=== PATIENT | female | born 1985 | race Caucasian/White ===

== ENCOUNTER 2017-02-01 21:38 | Emergency (ER) | payer OTHER ==
[~2017-02-01] VITALS: Ht 167.6 cm; Wt 62.0 kg
[2017-02-01 21:40] VITALS: BP 114/76; PULSE 112; RESP 16; TEMP 99.1; O2SAT 100
[2017-02-01] MEDS ORDERED: ZOFR4TAB3 SL ×2 (22:18)
[2017-02-01] MEDS ORDERED: HUMI40KI SQ ×2 (22:18)
[2017-02-01] MEDS ORDERED: HYDR2TAB PO ×2 (22:18)
[2017-02-01] MEDS ORDERED: MESA250 PO ×2 (22:18)
[2017-02-01] MEDS ORDERED: PROM25TA10 PO (22:18)
[2017-02-01] MEDS ORDERED: PRED5TAB PO (22:19)
[2017-02-01 22:37] VITALS: O2SAT 100
[2017-02-01] MEDS ORDERED: SODIUM CHLOR 0.9% 1000 ML INJ 1,000 ML IV SCH (22:38)
[2017-02-01] MEDS ORDERED: HYDROmorphone HCL PF 1 MG/ML VIAL IV PUSH ONE (22:45)
[2017-02-01] MEDS ORDERED: ONDANSETRON HCL 4 MG/2 ML VIAL IVP ONE (22:45)
--- NOTE | 2017-02-01 22:46 | PD ---
HPI Chief Complaint: GI Complaint Time Seen by Provider: 22:26 Travel History International Travel<30 days: No Contact w/Intl Traveler<30days: No Traveled to known affect area: No History of Present Illness HPI Patient comes in complaining of sharp stabbing abdominal pain ongoing for 4 days. Patient reports associated nausea, vomiting, diarrhea, and fevers. Patient states she has not been able to keep any of her medication down even with ODT Zofran. Patient states that she went to different ER this morning had lab work and CT done there and was told everything was fine given additional prescription for antinausea medication. Patient states she takes Dilaudid 4 mg by mouth for pain has been unable to keeping that down. Patient states she has a history of Crohn's that she has steroids at home for her when she has a flareup, Yodit keep them down either. Patient states this initially started off feeling like a Crohn's flare however is Progressively getting worse. Patient states she was in the hospital 3 weeks ago for an infection in her bowel movement was on Cipro and Flagyl. Patient states IV fluid and IV Zofran seemed to help some with her symptoms today. They'll pain is primarily periumbilical but radiates throughout the abdomen. PFSH Past Medical History Gastrointestinal Disorders: Yes (CHRONES) Immunizations Current: Yes ?: Not LMP: DECEMBER/DEPO : 1 Para: 1 Past Surgical History Abdominal Surgery: Yes (BOWEL RESECTION 08/18) Section: Yes Gynecologic Surgery: Yes () Social History Alcohol Use: No Tobacco Use: No Substance Use: No Allergies-Medications (Allergen,Severity, Reaction): Coded Allergies: No Known Allergies (Unverified , 02/01/17) Reported Meds & Prescriptions Reported Meds & Active Scripts Active Reported Prednisone 5 Mg Tab 5 Mg PO DAILY Pentasa (Mesalamine) 250 Mg Caper 1,000 Mg PO QID Humira 2-Pack Inj (Adalimumab 2-Pack Inj) 40 Mg/0.8 Ml Syr 40 Mg SQ Q14D Zofran Odt (Ondansetron Odt) 4 Mg Tab 4 Mg SL ONCE Phenergan (Promethazine HCl) 25 Mg Tablet 12.5 Mg PO ONCE Hydromorphone (Hydromorphone HCl) 2 Mg Tab 2 Mg PO Q6H PRN Review of Systems Except as stated in HPI: all other systems reviewed are Neg Physical Exam Narrative GENERAL: Well-developed, well nourished, appears uncomfortable, and non-ill appearing. SKIN: Focused skin assessment warm and dry. HEAD: Atraumatic. Normocephalic. EYES: Pupils equal and round. EOMI. No scleral icterus. No injection or drainage. ENT: No nasal bleeding or discharge. Mucous membranes pink and moist. NECK: Trachea midline. Supple. No nuclear rigidity. CARDIOVASCULAR: Regular rate and rhythm. No murmur appreciated. RESPIRATORY: No accessory muscle use. No respiratory distress. Clear to auscultation. Breath sounds equal bilaterally. GASTROINTESTINAL: Abdomen soft, nondistended, and no guarding. Hepatic and splenic margins not palpable. Normal bowel sounds 4. No pulsatile mass. Reports tenderness to palpation throughout abdomen. MUSCULOSKELETAL: No obvious deformities. No clubbing. No cyanosis. No edema. Full range of motion. NEUROLOGICAL: Awake and alert. No obvious cranial nerve deficits. Motor grossly within normal limits. Normal speech. PSYCHIATRIC: Appropriate mood and affect; insight and judgment normal. Data Data Last Documented VS Vital Signs Date Time Temp Pulse Resp B/P (MAP) Pulse Ox O2 Delivery O2 Flow Rate FiO2 02/01/17 22:37 100 Room Air 02/01/17 22:37 02/01/17 21:40 99.1 112 16 Orders Orders Complete Blood Count With Diff (02/01/17 22:19) Comprehensive Metabolic Panel (02/01/17 22:19) Urinalysis - C+S If Indicated (02/01/17 22:19) Ed Urine Pregnancytest Poc (02/01/17 22:19) Iv Access Insert/Monitor (02/01/17 22:19) Oxygen Administration (02/01/17 22:19) Oximetry (02/01/17 22:19) Lipase (02/01/17 22:19) Ondansetron Inj (Zofran Inj) (02/01/17 22:45) Sodium Chlor 0.9% 1000 Ml Inj (Ns 1000 M (02/01/17 22:38) Hydromorphone Pf Inj (Dilaudid Pf Inj) (02/01/17 22:45) [facility] Medical Decision Making Medical Screen Exam Complete: Yes Emergency Medical Condition: Yes Differential Diagnosis UTI, Crohn's flare, C. difficile, colitis, appendicitis, other Narrative Course Patient was seen and examined. Laboratory studies were ordered. Patient was given IV fluid, IV Zofran, and IV pain medication. Patient was signed out to Dr. Cherry at the end of my shift. Please see her documentation for final diagnosis and disposition. Deven Martínez Feb 01, 2017 22:45
[2017-02-01 22:48] LABS: AUTOMATED NEUTROPHIL # 7.2 TH/MM3 (1.8-7.7); BASOPHIL % 0.1 % (0.0-2.0); HEMATOCRIT 36.5 % (35.0-46.0); HEMO FLAGS DIFF FINAL; LYMPH % 28.5 % (9.0-44.0); LYMPHOCYTE # 3.2 TH/MM3 (1.0-4.8); MEAN CELL VOLUME 79.6 FL (80.0-100.0); MEAN CORPUSCULAR HGB CONC 32.6 % (32.0-36.0); MONO % 7.5 % (0.0-8.0); NEUT % 63.9 % (16.0-70.0); PLATELET COUNT 247 TH/MM3 (150-450); RED BLOOD COUNT 4.58 MIL/MM3 (4.00-5.30); RED CELL DISTRIBUTION WIDTH 14.7 % (11.6-17.2); WHITE BLOOD COUNT 11.2 TH/MM3 (4.0-11.0)
[2017-02-01 22:52] LABS: BACTERIA, URINE RARE /hpf; BLOOD, URINE NEG (NEG); COMMENT (UR) CULT NOT INDICATED; CULTURE IF INDICATED CULT NOT INDICATED; GLUCOSE,URINE NEG (NEG); KETONE, URINE NEG (NEG); MUCUS URINE MOD /lpf (OCC); NITRITE,URINE NEG (NEG); PH, URINE 6.5 (5.0-8.5); SQUAMOUS EPITHELIAL CELL URINE 5 /hpf (0-5); URINE COLOR YELLOW (YELLW/STRAW)
--- NOTE | 2017-02-01 22:55 | PD ---
Physical Exam Narrative General: The patient is a well-developed well-nourished female in no acute distress. Head and Neck exam: Head is normocephalic atraumatic. Eyes: EOMI, pupils are equal round and reactive to light. Nose: Midline septum with pink mucous membranes Mouth: Dentition unremarkable. Moist mucus membranes. Posterior oropharynx is not erythematous. No tonsillar hypertrophy. Uvula midline. Airway patent. Neck: No palpable lymphadenopathy. No nuchal rigidity. No thyromegaly. Cardiovascular: Regular rate and rhythm without murmurs, gallops, or rubs. Lungs: Clear to auscultation bilaterally. No wheezes, rhonchi, or rales. Abdomen: Soft, with reported tenderness on palpation of the left upper quadrant of the abdomen, no other tenderness on palpation of the other quadrants of the abdomen. No guarding, rebound, or rigidity. Normal bowel sounds are audible. No tenderness on palpation of McBurney's point. Extremities: No clubbing, cyanosis, or edema. 2+ pulses in all 4 extremities. No calf tenderness on palpation. Back: No costovertebral angle tenderness to palpation. Neurologic Exam: Grossly nonfocal. Skin Exam: No rash noted. Intact skin that is warm and dry. Data Data Last Documented VS Vital Signs Date Time Temp Pulse Resp B/P (MAP) Pulse Ox O2 Delivery O2 Flow Rate FiO2 02/01/17 22:37 100 Room Air 02/01/17 22:37 02/01/17 21:40 99.1 112 16 Orders Orders Complete Blood Count With Diff (02/01/17 22:19) Comprehensive Metabolic Panel (02/01/17 22:19) Urinalysis - C+S If Indicated (02/01/17 22:19) Ed Urine Pregnancytest Poc (02/01/17 22:19) Iv Access Insert/Monitor (02/01/17 22:19) Oxygen Administration (02/01/17 22:19) Oximetry (02/01/17 22:19) Lipase (02/01/17 22:19) Ondansetron Inj (Zofran Inj) (02/01/17 22:45) Sodium Chlor 0.9% 1000 Ml Inj (Ns 1000 M (02/01/17 22:38) Hydromorphone Pf Inj (Dilaudid Pf Inj) (02/01/17 22:45) Diphenhydramine (Benadryl) (02/01/17 23:15) Sodium Chlor 0.9% 1000 Ml Inj (Ns 1000 M (02/02/17 00:15) Metoclopramide Inj (Reglan Inj) (02/02/17 00:15) Diphenhydramine Inj (Benadryl Inj) (02/02/17 01:30) Hydromorphone Pf Inj (Dilaudid Pf Inj) (02/02/17 01:45) Labs Laboratory Tests Test 02/01/17 22:25 White Blood Count 11.2 TH/MM3 Red Blood Count 4.58 MIL/MM3 Hemoglobin 11.9 GM/DL Hematocrit 36.5 % Mean Corpuscular Volume 79.6 FL Mean Corpuscular Hemoglobin 26.0 PG Mean Corpuscular Hemoglobin Concent 32.6 % Red Cell Distribution Width 14.7 % Platelet Count 247 TH/MM3 Mean Platelet Volume 11.0 FL Neutrophils (%) (Auto) 63.9 % Lymphocytes (%) (Auto) 28.5 % Monocytes (%) (Auto) 7.5 % Eosinophils (%) (Auto) 0.0 % Basophils (%) (Auto) 0.1 % Neutrophils # (Auto) 7.2 TH/MM3 Lymphocytes # (Auto) 3.2 TH/MM3 Monocytes # (Auto) 0.8 TH/MM3 Eosinophils # (Auto) 0.0 TH/MM3 Basophils # (Auto) 0.0 TH/MM3 CBC Comment DIFF FINAL Differential Comment Urine Color YELLOW Urine Turbidity HAZY Urine pH 6.5 Urine Specific [place] 1.050 Urine Protein 30 mg/dL Urine Glucose (UA) NEG mg/dL Urine Ketones NEG mg/dL Urine Occult Blood NEG Urine Nitrite NEG Urine Bilirubin NEG Urine Urobilinogen 2.0 MG/DL Urine Leukocyte Esterase NEG Urine RBC 1 /hpf Urine WBC 2 /hpf Urine Squamous Epithelial Cells 5 /hpf Urine Bacteria RARE /hpf Urine Mucus MOD /lpf Microscopic Urinalysis Comment CULT NOT INDICATED Blood Urea Nitrogen 13 MG/DL Creatinine 0.73 MG/DL Random Glucose 89 MG/DL Total Protein 8.0 GM/DL Albumin 4.4 GM/DL Calcium Level 9.1 MG/DL Alkaline Phosphatase 62 U/L Aspartate Amino Transf (AST/SGOT) 6 U/L Alanine Aminotransferase (ALT/SGPT) 18 U/L Total Bilirubin 0.2 MG/DL Sodium Level 140 MEQ/L Potassium Level 3.9 MEQ/L Chloride Level 110 MEQ/L Carbon Dioxide Level 23.1 MEQ/L Anion Gap 7 MEQ/L Estimat Glomerular Filtration Rate 94 ML/MIN Lipase 99 U/L MDM Medical Record Reviewed: Yes Supervised Visit with SERGIO: No Narrative Course During the course of the patients emergency department visit, the patients history, examination, and differential diagnosis were reviewed with the patient. The patient had IV access obtained and blood work sent for analysis. The patient's case was checked out to me by Deven, the physician sugar laboratory assistant, at the conclusion of his shift. Please see his complete history and physical. Records from [facility] were obtained as the patient reports that she was there yesterday and had blood work done as well as a CT scan of the abdomen and pelvis. As the patient's abdominal examination was benign, and the patient has a history of recurrent CT scans of the abdomen and pelvis, we're trying to avoid further radiation unless the benefits outweigh the risk. The patient was initially provided normal saline 1 L IV fluid bolus, hydromorphone 0.5 mg IV, Zofran 4 mg IV. The patient had itching reported with the hydromorphone and was given Benadryl 25 mg by mouth 1. The patient reports an episode of vomiting of the pill. The patient was then given Benadryl 25 mg IV. For continued discomfort she was given hydromorphone 0.5 mg IV. The patient was given Reglan 5 mg IV for continued nausea. The patients laboratory studies were reviewed and remarkable for a white count of 11.2, hemoglobin 11.9, platelets 247 with a normal differential, CMP is remarkable for chloride of 110, AST 6, lipase 99, CMP is remarkable for an elevated specific gravity consistent with dehydration, 30 protein, rare bacteria , culture not indicated. Records from [facility] were obtained and the patient had a CT scan of the abdomen and pelvis on January 14 at their facility as well as on February 01 at that facility which revealed an unremarkable CT scan of the abdomen and pelvis. Given the fact that the patient's abdominal examination at this time is benign, the risks outweigh the benefits of additional imaging. The patient was instructed to hold her Phenergan orally and instead use Phenergan suppositories. She is instructed to follow-up with her pain management doctor, GI doctor, and primary care physician in the morning for reexamination for improvement. She is instructed to push fluids and get plenty of rest. She is instructed to continue her usual pain management regimen. The patient is resting comfortably and feels better, is alert and in no distress. The patients results and examination findings were discussed with the patient. The repeat examination is unremarkable and benign. The history, exam, diagnostic testing, and current condition do not suggest any significant pathology to warrant further testing, continued ED treatment, admission, or surgical evaluation at this point. The vital signs have been stable. The patient does not have uncontrollable pain, intractable vomiting, or other significant symptoms. The patient's condition is stable and appropriate for discharge. The patient will pursue further outpatient evaluation with a primary care physician or other designated or consulting physician as indicated in the discharge instructions. The patient expressed understanding and was agreeable with this plan. Diagnosis Primary Impression: Abdominal pain Qualified Codes: R10.12 - Left upper quadrant pain Referrals: Kizzy Jay MD call for appointment Primary Care Physician 2 days Patient Instructions: General Instructions Med/Other Pt SpecificInfo: Prescription(s) given Scripts Promethazine Supp (Phenergan Supp) 25 Mg Supp 25 MG RECTAL Q8HR Y for NAUSEA OR VOMITING, #7 SUPP 0 Refills Prov: Lesia Cherry MD 02/02/17 Disposition: 01 DISCHARGE HOME Condition: Stable Lesia Cherry MD Feb 01, 2017 22:55
[2017-02-01 23:04] LABS: ALT (GPT) 18 U/L (10-53); ANION GAP 7 MEQ/L (5-15); AST (GOT) 6 U/L (15-37); BICARBONATE 23.1 MEQ/L (21.0-32.0); BLOOD UREA NITROGEN 13 MG/DL (7-18); CHLORIDE 110 MEQ/L (98-107); GLOMERULAR FILTRATION RATE 94 ML/MIN (>89); POTASSIUM 3.9 MEQ/L (3.5-5.1); SODIUM (NA) 140 MEQ/L (136-145)
[2017-02-01 23:06] LABS: ALKALINE PHOSPHATASE 62 U/L (45-117); TOTAL BILIRUBIN ADULT 0.2 MG/DL (0.2-1.0)
[2017-02-01] MEDS ORDERED: diphenhydrAMINE HCL 25 MG CAP PO ONE (23:15)
[2017-02-02] MEDS ORDERED: SODIUM CHLOR 0.9% 1000 ML INJ 1,000 ML IV ONE (00:15)
[2017-02-02] MEDS ORDERED: METOCLOPRAMIDE HCL 10 MG/2 ML VIAL IV PUSH ONE (00:15)
[2017-02-02] MEDS ORDERED: diphenhydrAMINE HCL 50 MG/ML VIAL IV PUSH ONE (01:30)
[2017-02-02] MEDS ORDERED: HYDROmorphone HCL PF 1 MG/ML VIAL IV PUSH ONE (01:45)
[2017-02-02] MEDS ORDERED: PROM1SUP7 RECTAL (01:46)
[2017-02-02] MEDS ORDERED: ZOLO100T PO ×2 (23:28)
[2017-02-02] MEDS ORDERED: ALPR.5 PO ×2 (23:28)
== END 2017-02-02 02:22 | disposition home or self-care (01) ==
LOC: NEPE 21:38
DX: R10.12 Left upper quadrant pain (principal); K50.90 Crohn's disease, unspecified, without complications
CPT/HCPCS: 80053; 81001; 83690; 84703; 85025; 96361; 96374; 96375; 96376; 99284; J1170; J1200; J2405; J2765; J7030

== ENCOUNTER 2017-02-02 20:34 | Inpatient (IN) | payer OTHER ==
[~2017-02-02] VITALS: Ht 167.6 cm; Wt 65.0 kg
[~2017-02-02 20:34] MED LIST: HUMI40KI SQ; HYDR2TAB PO; MESA250 PO; PRED5TAB PO; PROM1SUP7 RECTAL; PROM25TA10 PO; ZOFR4TAB3 SL
[2017-02-02 20:36] VITALS: BP 150/97; PULSE 115; RESP 18; TEMP 98.3; O2SAT 96
[2017-02-02] MEDS ORDERED: ALPR.5 PO ×2 (23:28)
[2017-02-02] MEDS ORDERED: ZOLO100T PO ×2 (23:28)
[2017-02-02] MEDS ORDERED: ONDANSETRON HCL 4 MG/2 ML VIAL IVP ONE (23:30)
[2017-02-02] MEDS ORDERED: SODIUM CHLORIDE 0.9% FLUSH 10 ML FLUSH IV FLUSH PRN (23:30)
[2017-02-02] MEDS ORDERED: MORPHINE SULFATE 4 MG/ML INJ IV PUSH ONE (23:30)
[2017-02-02] MEDS ORDERED: diphenhydrAMINE HCL 25 MG CAP PO ONE (23:45)
[2017-02-03] VITALS (8 sets, daily range): BP systolic 110–128; BP diastolic 56–80; PULSE 70–87; RESP 18–19; TEMP 97.7–98.3; O2SAT 97–100
[2017-02-03 00:17] LABS: BACTERIA, URINE RARE /hpf; BLOOD, URINE NEG (NEG); COMMENT (UR) CULT NOT INDICATED; CULTURE IF INDICATED CULT NOT INDICATED; GLUCOSE,URINE NEG (NEG); HYALINE CAST, URINE 1 /lpf (RARE); KETONE, URINE NEG (NEG); MUCUS URINE FEW /lpf (OCC); NITRITE,URINE NEG (NEG); SQUAMOUS EPITHELIAL CELL URINE 2 /hpf (0-5); URINE COLOR LIGHT-YELLOW (YELLW/STRAW)
[2017-02-03 00:19] LABS: AUTOMATED NEUTROPHIL # 3.5 TH/MM3 (1.8-7.7); BASOPHIL % 0.3 % (0.0-2.0); EOSINOPHIL # 0.1 TH/MM3 (0-0.4); EOSINOPHIL % 1.3 % (0.0-4.0); HEMATOCRIT 34.1 % (35.0-46.0); HEMO FLAGS DIFF FINAL; LYMPH % 47.9 % (9.0-44.0); LYMPHOCYTE # 3.7 TH/MM3 (1.0-4.8); MEAN CORPUSCULAR HGB CONC 32.5 % (32.0-36.0); MONO % 5.3 % (0.0-8.0); NEUT % 45.2 % (16.0-70.0); PLATELET COUNT 200 TH/MM3 (150-450); RED BLOOD COUNT 4.26 MIL/MM3 (4.00-5.30); RED CELL DISTRIBUTION WIDTH 14.5 % (11.6-17.2); WHITE BLOOD COUNT 7.8 TH/MM3 (4.0-11.0)
[2017-02-03] MEDS: SODIUM CHLOR 0.9% 1000 ML INJ 1,000 ML IV SCH ×4 (00:21→14:33)
[2017-02-03 00:39] LABS: ALT (GPT) 15 U/L (10-53); ANION GAP 7 MEQ/L (5-15); AST (GOT) 4 U/L (15-37); BICARBONATE 25.1 MEQ/L (21.0-32.0); BLOOD UREA NITROGEN 11 MG/DL (7-18); CHLORIDE 109 MEQ/L (98-107); GLOMERULAR FILTRATION RATE 96 ML/MIN (>89); POTASSIUM 3.2 MEQ/L (3.5-5.1); SODIUM (NA) 141 MEQ/L (136-145)
[2017-02-03 00:41] LABS: ALKALINE PHOSPHATASE 56 U/L (45-117); TOTAL BILIRUBIN ADULT 0.2 MG/DL (0.2-1.0)
[2017-02-03] MEDS ORDERED: PROCHLORPERAZINE INJ 10 MG/2 ML VIAL IV PUSH ONE (01:00)
[2017-02-03] MEDS ORDERED: KETOROLAC TROMETHAMINE 30 MG/ML (IVP) VIAL IV PUSH ONE (01:00)
--- NOTE | 2017-02-03 01:35 | PD ---
HPI Chief Complaint: Abdominal Pain Time Seen by Provider: 23:15 Travel History International Travel<30 days: No Contact w/Intl Traveler<30days: No Traveled to known affect area: No History of Present Illness HPI Patient is a 31 year old female who comes in complaining of nausea, vomiting, and abdominal pain. She was here last night for the same thing. She says she is having a Crohn's flare. She reports having gone to [facility] twice, most recently two days ago. She had CT scans done at both visits that were within normal limits. She was given two doses of dilaudid yesterday as well as Zofran and Reglan and was discharged home. She says that she still is unable to keep anything down. She was given Phenergen suppositories, which she says she tried to use, but she has been having diarrhea. She says the pain feels like her typical Crohn's disease. PFSH Past Medical History Gastrointestinal Disorders: Yes (CHRONES) Immunizations Current: Yes ?: Unknown : 1 Para: 1 Past Surgical History Abdominal Surgery: Yes (BOWEL RESECTION 08/18) Section: Yes Gynecologic Surgery: Yes () Social History Alcohol Use: No Tobacco Use: No Substance Use: No Allergies-Medications (Allergen,Severity, Reaction): Coded Allergies: No Known Allergies (Unverified , 02/02/17) Reported Meds & Prescriptions Reported Meds & Active Scripts Active Phenergan Supp (Promethazine HCl) 25 Mg Supp 25 Mg RECTAL Q8HR PRN Reported Xanax (Alprazolam) 0.5 Mg Tab 0.5 Mg PO TID PRN Zoloft (Sertraline HCl) 100 Mg Tab 100 Mg PO DAILY Pentasa (Mesalamine) 250 Mg Caper 1,000 Mg PO QID Humira 2-Pack Inj (Adalimumab 2-Pack Inj) 40 Mg/0.8 Ml Syr 40 Mg SQ Q14D Zofran Odt (Ondansetron Odt) 4 Mg Tab 4 Mg SL ONCE Hydromorphone (Hydromorphone HCl) 2 Mg Tab 2 Mg PO Q6H PRN Review of Systems Except as stated in HPI: all other systems reviewed are Neg General / Constitutional: No: Fever, Chills HENT: No: Headaches, Lightheadedness Cardiovascular: No: Chest Pain or Discomfort Respiratory: No: Shortness of Breath Gastrointestinal: Positive: Nausea, Vomiting, Diarrhea, Abdominal Pain Genitourinary: No: Dysuria Musculoskeletal: No: Edema, Pain Skin: No Rash, No Change in Pigmentation Neurologic: No: Weakness, Dizziness Physical Exam Narrative GENERAL: Awake and alert, in no acute distress. SKIN: Focused skin assessment warm/dry. HEAD: Atraumatic. Normocephalic. EYES: Pupils equal and round. No scleral icterus. No injection or drainage. ENT: Mucous membranes pink and moist. NECK: Trachea midline. No JVD. CARDIOVASCULAR: Regular rate and rhythm. No murmur appreciated. RESPIRATORY: No accessory muscle use. Clear to auscultation. Breath sounds equal bilaterally. GASTROINTESTINAL: Abdomen soft, nondistended. Mild diffuse tenderness to palpation, no rebound or guarding. MUSCULOSKELETAL: No obvious deformities. No clubbing. No cyanosis. No edema. NEUROLOGICAL: Awake and alert. No obvious cranial nerve deficits. Motor grossly within normal limits. Normal speech. PSYCHIATRIC: Appropriate mood and affect; insight and judgment normal. Data Data Last Documented VS Vital Signs Date Time Temp Pulse Resp B/P (MAP) Pulse Ox O2 Delivery O2 Flow Rate FiO2 02/03/17 01:13 98.1 85 18 128/56 (80) 100 02/03/17 00:25 Room Air Orders Orders Complete Blood Count With Diff (02/02/17 23:26) Comprehensive Metabolic Panel (02/02/17 23:26) Lactic Acid (02/02/17 23:26) Urinalysis - C+S If Indicated (02/02/17 23:26) Iv Access Insert/Monitor (02/02/17 23:26) Ecg Monitoring (02/02/17 23:26) Oximetry (02/02/17 23:26) Morphine Inj (Morphine Inj) (02/02/17 23:30) Ondansetron Inj (Zofran Inj) (02/02/17 23:30) Sodium Chlor 0.9% 1000 Ml Inj (Ns 1000 M (02/02/17 23:26) Sodium Chloride 0.9% Flush (Ns Flush) (02/02/17 23:30) Ed Urine Pregnancytest Poc (02/02/17 23:26) Diphenhydramine (Benadryl) (02/02/17 23:45) Ketorolac Inj (Toradol Inj) (02/03/17 01:00) Prochlorperazine Inj (Compazine Inj) (02/03/17 01:00) Labs Laboratory Tests Test 02/02/17 23:37 02/02/17 23:57 White Blood Count 7.8 TH/MM3 Red Blood Count 4.26 MIL/MM3 Hemoglobin 11.1 GM/DL Hematocrit 34.1 % Mean Corpuscular Volume 80.0 FL Mean Corpuscular Hemoglobin 26.0 PG Mean Corpuscular Hemoglobin Concent 32.5 % Red Cell Distribution Width 14.5 % Platelet Count 200 TH/MM3 Mean Platelet Volume 10.4 FL Neutrophils (%) (Auto) 45.2 % Lymphocytes (%) (Auto) 47.9 % Monocytes (%) (Auto) 5.3 % Eosinophils (%) (Auto) 1.3 % Basophils (%) (Auto) 0.3 % Neutrophils # (Auto) 3.5 TH/MM3 Lymphocytes # (Auto) 3.7 TH/MM3 Monocytes # (Auto) 0.4 TH/MM3 Eosinophils # (Auto) 0.1 TH/MM3 Basophils # (Auto) 0.0 TH/MM3 CBC Comment DIFF FINAL Differential Comment Blood Urea Nitrogen 11 MG/DL Creatinine 0.72 MG/DL Random Glucose 75 MG/DL Total Protein 7.4 GM/DL Albumin 4.1 GM/DL Calcium Level 8.5 MG/DL Alkaline Phosphatase 56 U/L Aspartate Amino Transf (AST/SGOT) 4 U/L Alanine Aminotransferase (ALT/SGPT) 15 U/L Total Bilirubin 0.2 MG/DL Sodium Level 141 MEQ/L Potassium Level 3.2 MEQ/L Chloride Level 109 MEQ/L Carbon Dioxide Level 25.1 MEQ/L Anion Gap 7 MEQ/L Estimat Glomerular Filtration Rate 96 ML/MIN Urine Color LIGHT-YELLOW Urine Turbidity CLEAR Urine pH 6.0 Urine Specific [place] 1.016 Urine Protein NEG mg/dL Urine Glucose (UA) NEG mg/dL Urine Ketones NEG mg/dL Urine Occult Blood NEG Urine Nitrite NEG Urine Bilirubin NEG Urine Urobilinogen LESS THAN 2.0 MG/DL Urine Leukocyte Esterase SMALL Urine RBC 1 /hpf Urine WBC 5 /hpf Urine Squamous Epithelial Cells 2 /hpf Urine Bacteria RARE /hpf Urine Hyaline Casts 1 /lpf Urine Mucus FEW /lpf Microscopic Urinalysis Comment CULT NOT INDICATED Lactic Acid Level 0.9 mmol/L MDM Medical Decision Making Medical Screen Exam Complete: Yes Emergency Medical Condition: Yes Medical Record Reviewed: Yes Differential Diagnosis Crohn's flare, electrolyte abnormalities, gastroenteritis Narrative Course Patient is a 31-year-old female comes in complaining of abdominal pain with nausea and vomiting. Exam shows mild diffuse tenderness on palpation. Patient has had multiple CAT scans done in the past few weeks that have all been negative. IV established, labs sent. Labs show a potassium of 3.2, no other acute abnormalities. Given IV fluids, morphine, Zofran. She requested Benadryl makes her itch. She was given oral Benadryl. She continued to complain of nausea and abdominal pain. Given Toradol and Compazine. Patient will be admitted for intractable vomiting. Diagnosis Primary Impression: Nausea & vomiting Qualified Codes: R11.2 - Nausea with vomiting, unspecified Additional Impression: Abdominal pain Qualified Codes: R10.84 - Generalized abdominal pain Admitting Information Admitting Physician Requests: Admit Condition: Stable Daisy Hubbard MD Feb 03, 2017 01:35
[2017-02-03] MEDS ORDERED: MORPHINE SULFATE 4 MG/ML INJ IV PUSH ONE (01:45)
[2017-02-03] MEDS ORDERED: POTASSIUM CHLORIDE 10 MEQ CONTROLLED RELEASE TAB PO ONE (01:45)
[2017-02-03] MEDS ORDERED: NALOXONE HCL 0.4 MG/ML AMP IV PUSH PRN (02:15)
[2017-02-03] MEDS ORDERED: SODIUM CHLORIDE 0.9% FLUSH 10 ML FLUSH IV FLUSH PRN (02:15)
[2017-02-03] MEDS: HYDROmorphone HCL 2 MG TAB PO PRN (08:17)
[2017-02-03] MEDS: ONDANSETRON HCL 4 MG/2 ML VIAL IVP PRN (08:42)
[2017-02-03] MEDS: MESALAMINE 250 MG CAP PO SCH ×4 (09:08→20:45)
[2017-02-03] MEDS: SODIUM CHLORIDE 0.9% FLUSH 10 ML FLUSH IV FLUSH SCH ×2 (09:08→20:46)
[2017-02-03] MEDS: SERTRALINE HCL 100 MG TAB PO SCH (09:08)
--- NOTE | 2017-02-03 09:38 | HHI.HP ---
[facility]Staff Admission Diagnosis intractable vomiting Diagnoses: Chief Complaint: Abdominal pain Travel History International Travel<30 Days: No Contact w/Intl Traveler <30 Da: No Traveled to Known Affected Are: No History of Present Illness Written by Junior Wharton, acting as scribe for Dr. Smith on 02/03/17 at 09:37. 31-year-old female with past medical history of Crohn's disease, anxiety, and chronic abdominal pain who presented for worsening abdominal pain. The patient states that for the past 5 days since she has been having abdominal pain. She describes the pain as mid abdomen radiating to her back, constant, sharp. She actually finished a prednisone taper the day before; was told to stop by her mortgage closing clerk Dr. Frank. She's been to the ED multiple times with this and has had an unremarkable abdominal CT scans and discharged home. She states that on she had a fever of 102 and it was 101 on Thursday, although it has improved since then. She states she's been having associated nausea and vomiting, nonbloody for the last 5 days. For the past 5 days she's been having associated diarrhea about 20 times a day, reports occasionally bloody due to hemorrhoidal irritation. She isn't having associated headache for last 5 days described as a pressure. She states she's felt more weak and had a fall, denies any loss of consciousness. She denies any dysuria. She reports she has not been able to keep any of her oral medications down for Crohn's disease or pain. Review of Systems Except as stated in HPI: all other systems reviewed are Neg Past Family Social History Past Medical History Reported history of Crohn's disease Chronic pain Anxiety/depression Past Surgical History Bowel resection of the terminal ileum in August 2016 Appendectomy Reported Medications Reported Meds & Active Scripts Active Phenergan Supp (Promethazine HCl) 25 Mg Supp 25 Mg RECTAL Q8HR PRN Reported Xanax (Alprazolam) 0.5 Mg Tab 0.5 Mg PO TID PRN Zoloft (Sertraline HCl) 100 Mg Tab 100 Mg PO DAILY Pentasa (Mesalamine) 250 Mg Caper 1,000 Mg PO QID Humira 2-Pack Inj (Adalimumab 2-Pack Inj) 40 Mg/0.8 Ml Syr 40 Mg SQ Q14D Zofran Odt (Ondansetron Odt) 4 Mg Tab 4 Mg SL ONCE Hydromorphone (Hydromorphone HCl) 2 Mg Tab 2 Mg PO Q6H PRN Allergies: Coded Allergies: No Known Allergies (Unverified , 02/02/17) Active Ordered Medications Current Medications Medications (Trade) Dose Ordered Sig/Ayan Route Start Time Stop Time Status Last Admin Sodium Chloride 1,000 ml @ 100 mls/hr Q10H IV 02/03/17 02:05 02/03/17 04:18 (NS Flush) 2 ml UNSCH PRN IV FLUSH 02/03/17 02:15 (NS Flush) 2 ml BID IV FLUSH 02/03/17 09:00 02/03/17 09:08 (Zofran Inj) 4 mg Q6H PRN IVP 02/03/17 02:15 02/03/17 08:42 (Narcan Inj) 0.4 mg UNSCH PRN IV PUSH 02/03/17 02:15 (Pentasa Sr) 1,000 mg QID PO 02/03/17 09:00 02/03/17 09:08 (Zoloft) 100 mg DAILY PO 02/03/17 09:00 02/03/17 09:08 (Xanax) 0.5 mg TID PRN PO 02/03/17 07:45 (Dilaudid) 2 mg Q6H PRN PO 02/03/17 07:45 02/03/17 08:17 (Dilaudid Pf Inj) 1 mg Q6H PRN IV PUSH 02/03/17 10:30 UNV (Benadryl) 25 mg Q6H PRN PO 02/03/17 10:30 UNV Family History Father was an alcoholic and of suicide and had GI ulcers Social History Denies any alcohol, tobacco, or drug use Physical Exam Vital Signs Vital Signs Date Time Temp Pulse Resp B/P (MAP) Pulse Ox O2 Delivery O2 Flow Rate FiO2 02/03/17 08:00 97.7 82 18 110/75 (87) 99 02/03/17 04:20 74 02/03/17 03:26 97.7 70 18 111/76 (88) 99 02/03/17 01:13 98.1 85 18 128/56 (80) 100 02/03/17 00:25 98 Room Air 02/02/17 23:08 18 02/02/17 20:36 98.3 115 18 150/97 (114) 96 Room Air Physical Exam GENERAL: Well-developed well-nourished. In no acute distress. SKIN: Warm and dry. Well-healed midline abdominal surgical scar. HEENT: Normocephalic. Pupils equal and round. Mucous membranes pink and moist. CARDIOVASCULAR: Regular rate and rhythm. No murmur appreciated. RESPIRATORY: No accessory muscle use. Clear to auscultation. Breath sounds equal bilaterally. GASTROINTESTINAL: Abdomen soft, nondistended. Bowel sounds x4. Generalized TTP , worse on the right. MUSCULOSKELETAL: No obvious deformities. No clubbing or cyanosis. No edema. NEUROLOGICAL: Awake and alert. No focal neurological deficits. Moves upper and lower extremities spontaneously. Normal speech. PSYCHIATRIC: Appropriate mood and affect; insight and judgment normal. Laboratory Laboratory Tests Test 02/02/17 23:37 02/02/17 23:57 White Blood Count 7.8 Red Blood Count 4.26 Hemoglobin 11.1 Hematocrit 34.1 Mean Corpuscular Volume 80.0 Mean Corpuscular Hemoglobin 26.0 Mean Corpuscular Hemoglobin Concent 32.5 Red Cell Distribution Width 14.5 Platelet Count 200 Mean Platelet Volume 10.4 Neutrophils (%) (Auto) 45.2 Lymphocytes (%) (Auto) 47.9 Monocytes (%) (Auto) 5.3 Eosinophils (%) (Auto) 1.3 Basophils (%) (Auto) 0.3 Neutrophils # (Auto) 3.5 Lymphocytes # (Auto) 3.7 Monocytes # (Auto) 0.4 Eosinophils # (Auto) 0.1 Basophils # (Auto) 0.0 CBC Comment DIFF FINAL Differential Comment Blood Urea Nitrogen 11 Creatinine 0.72 Random Glucose 75 Total Protein 7.4 Albumin 4.1 Calcium Level 8.5 Alkaline Phosphatase 56 Aspartate Amino Transf (AST/SGOT) 4 Alanine Aminotransferase (ALT/SGPT) 15 Total Bilirubin 0.2 Sodium Level 141 Potassium Level 3.2 Chloride Level 109 Carbon Dioxide Level 25.1 Anion Gap 7 Estimat Glomerular Filtration Rate 96 Urine Color LIGHT-YELLOW Urine Turbidity CLEAR Urine pH 6.0 Urine Specific [place] 1.016 Urine Protein NEG Urine Glucose (UA) NEG Urine Ketones NEG Urine Occult Blood NEG Urine Nitrite NEG Urine Bilirubin NEG Urine Urobilinogen LESS THAN 2.0 Urine Leukocyte Esterase SMALL Urine RBC 1 Urine WBC 5 Urine Squamous Epithelial Cells 2 Urine Bacteria RARE Urine Hyaline Casts 1 Urine Mucus FEW Microscopic Urinalysis Comment CULT NOT INDICATED Lactic Acid Level 0.9 Urine Opiates Screen NEG Urine Barbiturates Screen NEG Urine Amphetamines Screen NEG Urine Benzodiazepines Screen POS Urine Cocaine Screen NEG Urine Cannabinoids Screen NEG Result Diagram: 02/02/17233602/02/172336 Caprini VTE Risk Assessment Caprini VTE Risk Assessment: No/Low Risk (score <= 1) Caprini Risk Assessment Model Point Value = 1 Point Value = 2 Point Value = 3 Point Value = 5 Age 41-60 Minor surgery BMI > 25 kg/m2 Swollen legs Varicose veins or History of unexplained or recurrent spontaneous Oral contraceptives or hormone replacement Sepsis (< 1 month) Serious lung disease, including pneumonia (< 1 month) Abnormal pulmonary function Acute myocardial infarction Congestive heart failure (< 1 month) History of inflammatory bowel disease Medical patient at bed rest Age 61-74 Arthroscopic surgery Major open surgery (> 45 min) Laparoscopic surgery (> 45 min) Malignancy Confined to bed (> 72 hours) Immobilizing plaster cast Central venous access Age >= 75 History of VTE Family history of VTE Factor V Leiden Prothrombin [id number] Lupus anticoagulant Anticardiolipin antibodies Elevated serum homocysteine Heparin-induced thrombocytopenia Other congenital or acquired thrombophilia Stroke (< 1 month) Elective arthroplasty Hip, pelvis, or leg fracture Acute spinal cord injury (< 1 month) Prophylaxis Regimen Total Risk Factor Score Risk Level Prophylaxis Regimen 0-1 Low Early ambulation 2 Moderate Order ONE of the following: *Sequential Compression Device (SCD) *Heparin 5000 units SQ BID 3-4 Higher Order ONE of the following medications: *Heparin 5000 units SQ TID *Enoxaparin/Lovenox 40 mg SQ daily (WT < 150 kg, CrCl > 30 mL/min) *Enoxaparin/Lovenox 30 mg SQ daily (WT < 150 kg, CrCl > 10-29 mL/min) *Enoxaparin/Lovenox 30 mg SQ BID (WT < 150 kg, CrCl > 30 mL/min) AND/OR *Sequential Compression Device (SCD) 5 or more Highest Order ONE of the following medications: *Heparin 5000 units SQ TID (Preferred with Epidurals) *Enoxaparin/Lovenox 40 mg SQ daily (WT < 150 kg, CrCl > 30 mL/min) *Enoxaparin/Lovenox 30 mg SQ daily (WT < 150 kg, CrCl > 10-29 mL/min) *Enoxaparin/Lovenox 30 mg SQ BID (WT < 150 kg, CrCl > 30 mL/min) AND *Sequential Compression Device (SCD) Assessment and Plan Assessment and Plan 31-year-old female with past medical history of Crohn's disease, anxiety/ depression, and chronic abdominal pain who presented for worsening abdominal pain Abdominal pain, nausea, vomiting, diarrhea: Possible Crohn's flare. -Obtain records from patient's mortgage closing clerk -Consult gastroenterology -IV steroids -Pain control as below -Continue home mesalamine -IVF -Zofran as needed Chronic pain: Confirmed patient's home dose of Dilaudid 2 mg every 6 hours as needed. -Continue home Dilaudid oral and will provide IV Dilaudid as needed if not tolerating oral intake as above Anxiety/depression: Chronic. -Continue Zoloft and Xanax as needed DVT prophylaxis: SCDs Discussed Condition With Patient Attending Statement This note was transcribed by arian [Junior Wharton]. I, Dr. Josué Smith personally performed the history, physical exam, and medical decision making; and confirmed the accuracy of the information in the transcribed note. Authenticated by Dr. Josué Smith on 02/03/17 at 23:11. Junior Wharton Feb 03, 2017 09:38 Josué Smith MD Feb 03, 2017 23:11
[2017-02-03] MEDS: diphenhydrAMINE HCL 25 MG CAP PO PRN (11:22)
[2017-02-03] MEDS: HYDROmorphone HCL PF 1 MG/ML VIAL IV PUSH PRN ×2 (11:23→18:27)
[2017-02-03] MEDS: methylPREDNISolone SOD SUCC 40 MG/1 ML VIAL IV PUSH SCH ×2 (13:23→20:45)
--- NOTE | 2017-02-03 15:12 | PD.CONS ---
HPI History of Present Illness This is a 31 year old female who presented to the emergency room for evaluation of nausea, vomiting, diarrhea with abdominal pain and inability to tolerate po x 5 days. She reports that she was diagnosed with Crohn's disease 8 years. She is on Humira (took a week ago Thursday), pentasa 250mg iiii po QID, zofran prn , phenergan prn, dilaudid 2mg po QID. She goes to pain management for her dilaudid/Ramírez infusions for abdominal and back pain. Her locker plant attendant is Dr. Frank in [place]. She hospitalized 3 weeks ago at [facility] and she was sent home with tapering steroids. She then followed up with her locker plant attendant Dr. Frank on Thursday and he discontinued the steroids and wanted to set her up for a colonoscopy. She last had a colonoscopy in August of [address] 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 She complains of RLQ pain that radiates to her back. It is a sharp intermittent pain that radiates to her back- where she has a constant dull ache. She reports that she is unable to tolerate any po x 4-5 days and vomits undigested food or bile if she tries. She reports that she has been having 20 loose stools per day, sometimes mixed with a small amount of bright red blood. However, this is more controlled since she has been in the hospital and she has only had 4 today. She has lost 5 lbs in the past couple of days. She states that she recently relocated from [place] and is still following with her GI physician in [place]. She is requesting IV pain medicine for her abdominal and back pain. Obtained records from [facility]. She has had multiple ER visits for abdominal pain. She was seen on 01/14/17 and was discharged home. She returned on 01/15 and was admitted overnight and evaluated by Dr. Ronda Davis for abdominal pain, possibly related to Crohns exacerbation and she was given a steroid taper. She was then seen in the ER on 01/31 and discharged home with Lortab. She was also seen in the ER on 02/01. At that time, she was evaluated with CT scan abdomen and pelvis with IV contrast (02/01/17)---> unremarkable CT scan of the abdomen and pelvis. She was discharged home and instructed to follow up with her GI physician and if she could not be seen by him, by Dr. Wise. (Alma Marino) [facility] Past Medical History Reported history of Crohn's disease Fibromyalgia Chronic pain Anxiety/depression Past Surgical History Bowel resection of the terminal ileum, descending colon in August 2016 Appendectomy Colonoscopy (Alma Marino) Coded Allergies: No Known Allergies (Unverified , 02/02/17) Medications Allergies Coded Allergies Type Severity Reaction Last Updated Verified No Known Allergies 02/02/17 No Active Scripts Medications Dose Route/Sig Max Daily Dose Days Date Category Xanax (Alprazolam) 0.5 Mg Tab 0.5 Mg PO TID PRN 02/02/17 Reported Zoloft (Sertraline HCl) 100 Mg Tab 100 Mg PO DAILY 02/02/17 Reported Phenergan Supp (Promethazine HCl) 25 Mg Supp 25 Mg RECTAL Q8HR PRN 02/02/17 Rx Pentasa (Mesalamine) 250 Mg Caper 1,000 Mg PO QID 02/01/17 Reported Humira 2-Pack Inj (Adalimumab 2-Pack Inj) 40 Mg/0.8 Ml Syr 40 Mg SQ Q14D 02/01/17 Reported Zofran Odt (Ondansetron Odt) 4 Mg Tab 4 Mg SL ONCE 02/01/17 Reported Hydromorphone (Hydromorphone HCl) 2 Mg Tab 2 Mg PO Q6H PRN 02/01/17 Reported Family History Father was an alcoholic and of suicide and had GI ulcers Social History Denies any alcohol, tobacco, or drug use (Alma Marino) Review of Systems Constitutional: COMPLAINS OF: Fatigue, Weight loss, Change in appetite, DENIES : Fever, Chills Respiratory: DENIES: Cough, Shortness of breath Cardiovascular: DENIES: Chest pain Gastrointestinal: COMPLAINS OF: Abdominal pain, Diarrhea, Nausea, Vomiting, DENIES: Black stools, Bloody stools, Constipation, Swelling of Abdomen, Heartburn Musculoskeletal: COMPLAINS OF: Back pain Hematologic/lymphatic: DENIES: Bruising Neurologic: DENIES: Headache Psychiatric: DENIES: Confusion (Alma Marino CURRICULUM SPECIALIST) GI Exam Vitals I&O Vital Signs Date Time Temp Pulse Resp B/P (MAP) Pulse Ox O2 Delivery O2 Flow Rate FiO2 02/03/17 11:27 97.9 87 18 115/80 (92) 100 02/03/17 08:00 97.7 82 18 110/75 (87) 99 02/03/17 04:20 74 02/03/17 03:26 97.7 70 18 111/76 (88) 99 02/03/17 01:13 98.1 85 18 128/56 (80) 100 02/03/17 00:25 98 Room Air 02/02/17 23:08 18 02/02/17 20:36 98.3 115 18 150/97 (114) 96 Room Air I/O 02/02/17 02/02/17 02/02/17 02/03/17 02/03/17 02/03/17 07:00 15:00 23:00 07:00 15:00 23:00 Intake Total 1000 ml 1000 ml Balance 1000 ml 1000 ml Intake IV Total 1000 ml 1000 ml Laboratory Test 02/02/17 23:37 02/02/17 23:57 White Blood Count 7.8 TH/MM3 Red Blood Count 4.26 MIL/MM3 Hemoglobin 11.1 GM/DL Hematocrit 34.1 % Mean Corpuscular Volume 80.0 FL Mean Corpuscular Hemoglobin 26.0 PG Mean Corpuscular Hemoglobin Concent 32.5 % Red Cell Distribution Width 14.5 % Platelet Count 200 TH/MM3 Mean Platelet Volume 10.4 FL Neutrophils (%) (Auto) 45.2 % Lymphocytes (%) (Auto) 47.9 % Monocytes (%) (Auto) 5.3 % Eosinophils (%) (Auto) 1.3 % Basophils (%) (Auto) 0.3 % Neutrophils # (Auto) 3.5 TH/MM3 Lymphocytes # (Auto) 3.7 TH/MM3 Monocytes # (Auto) 0.4 TH/MM3 Eosinophils # (Auto) 0.1 TH/MM3 Basophils # (Auto) 0.0 TH/MM3 CBC Comment DIFF FINAL Differential Comment Blood Urea Nitrogen 11 MG/DL Creatinine 0.72 MG/DL Random Glucose 75 MG/DL Total Protein 7.4 GM/DL Albumin 4.1 GM/DL Calcium Level 8.5 MG/DL Alkaline Phosphatase 56 U/L Aspartate Amino Transf (AST/SGOT) 4 U/L Alanine Aminotransferase (ALT/SGPT) 15 U/L Total Bilirubin 0.2 MG/DL Sodium Level 141 MEQ/L Potassium Level 3.2 MEQ/L Chloride Level 109 MEQ/L Carbon Dioxide Level 25.1 MEQ/L Anion Gap 7 MEQ/L Estimat Glomerular Filtration Rate 96 ML/MIN Urine Color LIGHT-YELLOW Urine Turbidity CLEAR Urine pH 6.0 Urine Specific [place] 1.016 Urine Protein NEG mg/dL Urine Glucose (UA) NEG mg/dL Urine Ketones NEG mg/dL Urine Occult Blood NEG Urine Nitrite NEG Urine Bilirubin NEG Urine Urobilinogen LESS THAN 2.0 MG/DL Urine Leukocyte Esterase SMALL Urine RBC 1 /hpf Urine WBC 5 /hpf Urine Squamous Epithelial Cells 2 /hpf Urine Bacteria RARE /hpf Urine Hyaline Casts 1 /lpf Urine Mucus FEW /lpf Microscopic Urinalysis Comment CULT NOT INDICATED Lactic Acid Level 0.9 mmol/L Urine Opiates Screen NEG Urine Barbiturates Screen NEG Urine Amphetamines Screen NEG Urine Benzodiazepines Screen POS Urine Cocaine Screen NEG Urine Cannabinoids Screen NEG Physical Examination HEENT: Normocephalic; atraumatic; no jaundice. Throat is clear. NECK: Neck is supple, no JVD, no lymphadenopathy. CHEST: CTA CARDIAC: RRR ABDOMEN: Soft, nondistended, RLQ tenderness; no hepatosplenomegaly; bowel sounds are present in all four quadrants. Scar mid abdomen EXTREMITIES: No clubbing, cyanosis, or edema. SKIN: Normal; no rash; no jaundice. GEOPHYSICS SCIENTIST: No focal deficits; alert and oriented times three. (Alma Marino [facility]) Assessment and Plan Plan ASSESSMENT: - Abdominal pain with N/V/D. Pt reports that she has Crohn's disease. She is followed by Dr. Frank in [place]. She recently relocated to this area and has had several visits to [facility] for abdominal pain and diarrhea. Reviewed records from [facility]. She was seen on 01/14/17 and was discharged home. She returned on 01/15 and was admitted overnight and evaluated by Dr. Ronda Davis for abdominal pain, possibly related to Crohns exacerbation and she was given a steroid taper. She was then seen in the ER on 01/31 and discharged home with Lortab. She was also seen in the ER on 10/1. At that time, she was evaluated with CT scan abdomen and pelvis with IV contrast (02/01/17)- --> unremarkable CT scan of the abdomen and pelvis. She was discharged home and instructed to follow up with her GI physician. She saw Dr. Frank on Thursday, at which time he took her off the steroid taper and recommended colonoscopy. She has not scheduled this yet. Reports 5 day hx of n/v, RLQ pain, and severe diarrhea with 20 bm's per day, occasional brbpr when she wipes. HH 11.1/34.1. K+ 3.2. She was started on Solumedrol 40mg IV q8h. Need to get records from Dr. Frank. May need egd/colonoscopy. - Reported hx of Crohn's. States dx 8 years ago. She is on Humira (took a week ago Thursday), pentasa 250mg iiii po QID, zofran prn, phenergan prn, dilaudid 2mg po QID. 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) . Followed by Dr. Frank in [place]. - Chronic back and abdominal pain. States she takes Dilaudid 2mg po QID. She goes to pain management for this and Padmini's infusions for fibromyalgia. She goes to pain management for her dilaudid/Ramírez infusions for abdominal and back pain. - Anemia, mild. Stable. - Hypokalemia, Fibromyalgia. Per attending. PLAN: - Clear liquids - Cont. Solumedrol for now - Monitor labs - Monitor stool output - Obatin records from Dr. Frank ([place]) - [facility] - Supportive care - Will put records from [facility] in chart - May need egd/colonoscopy, will try to get records first - Further recommendations to follow after patient seen and examined by Dr. Sagastume. (Alma Marino) Physician Comments seen, examined agree with above can try ice chips will need ct enterography vs sbft egd/colon before dc stool studies Flagyl 500 mg iv q 8 hrs (Maricruz Sagastume MD) Alma Marino Feb 03, 2017 15:12 Maricruz Sagastume MD Feb 03, 2017 18:18
[2017-02-03] MEDS: metroNIDAZOLE 500 MG INJ 100 ML IV SCH (20:00)
--- NOTE | 2017-02-03 22:05 | RADRPT ---
EXAM DATE/TIME: 02/03/2017 20:51 [place] COMPARISON: No previous studies available for comparison. INDICATIONS : Abdominal pain. MEDICAL HISTORY : Crohn's disease. SURGICAL HISTORY : section. Appendectomy. Bowel resection. ENCOUNTER: Initial ACUITY: 4 - 6 days PAIN SCORE: 6/10 LOCATION: abdomen. FINDINGS: Supine and upright views of the abdomen were performed. What appear to be bowel shashank are seen in the right lower quadrant. The abdominal bowel gas pattern is normal. No air fluid levels are seen. No abnormal masses, calcifications, or organomegaly is seen. The visualized lower lungs are clear. No evidence of free intraperitoneal gas. The osseous structures are unremarkable. Snaps from the pat ient gown are seen over the abdomen bilaterally. CONCLUSION: No acute disease. Laurent Kunz MD on February 03, 2017 at 22:03 Board Certified Radiologist. This report was verified electronically.
[2017-02-04 00:32] VITALS: BP 118/81; PULSE 101; RESP 17; TEMP 98.7; O2SAT 93
[2017-02-04] MEDS: HYDROmorphone HCL PF 1 MG/ML VIAL IV PUSH PRN ×3 (00:37→21:45)
[2017-02-04] MEDS: SODIUM CHLOR 0.9% 1000 ML INJ 1,000 ML IV SCH (01:40)
[2017-02-04] MEDS: metroNIDAZOLE 500 MG INJ 100 ML IV SCH ×4 (01:41→19:58)
[2017-02-04 03:48] VITALS: BP 106/63; PULSE 80; RESP 18; TEMP 98.7; O2SAT 97
[2017-02-04] MEDS: methylPREDNISolone SOD SUCC 40 MG/1 ML VIAL IV PUSH SCH ×2 (05:38→15:14)
[2017-02-04 07:57] VITALS: BP 132/92; PULSE 66; RESP 20; TEMP 96; O2SAT 98
[2017-02-04] MEDS: ONDANSETRON HCL 4 MG/2 ML VIAL IVP PRN ×3 (08:33→21:46)
[2017-02-04] MEDS: SERTRALINE HCL 100 MG TAB PO SCH (08:33)
[2017-02-04] MEDS: SODIUM CHLORIDE 0.9% FLUSH 10 ML FLUSH IV FLUSH SCH ×2 (08:34→20:43)
[2017-02-04 08:43] LABS: AUTOMATED NEUTROPHIL # 4.5 TH/MM3 (1.8-7.7); BASOPHIL % 0.1 % (0.0-2.0); EOSINOPHIL % 0.1 % (0.0-4.0); HEMATOCRIT 33.3 % (35.0-46.0); HEMO FLAGS DIFF FINAL; LYMPH % 20.8 % (9.0-44.0); LYMPHOCYTE # 1.2 TH/MM3 (1.0-4.8); MEAN CELL VOLUME 79.1 FL (80.0-100.0); MEAN CORPUSCULAR HEMOGLOBIN 25.6 PG (27.0-34.0); MEAN CORPUSCULAR HGB CONC 32.4 % (32.0-36.0); MONO % 3.3 % (0.0-8.0); NEUT % 75.7 % (16.0-70.0); PLATELET COUNT 199 TH/MM3 (150-450); RED BLOOD COUNT 4.21 MIL/MM3 (4.00-5.30); RED CELL DISTRIBUTION WIDTH 14.2 % (11.6-17.2)
[2017-02-04 08:47] LABS: BICARBONATE 23.5 MEQ/L (21.0-32.0); MAGNESIUM 2.2 MG/DL (1.5-2.5); POTASSIUM 3.4 MEQ/L (3.5-5.1)
[2017-02-04] MEDS: MESALAMINE 250 MG CAP PO SCH ×4 (09:37→19:58)
--- NOTE | 2017-02-04 10:41 | HHI.PR ---
Subjective Remarks Follow-up for abdominal pain and possible Crohn's exacerbation. The patient reports she is feeling better today. She denies any vomiting since around 3 yesterday afternoon. She has been tolerating water and ice chips. She does state that she needed some Zofran earlier due to nausea. Abdominal pain is improving. She has not had a bowel movement since admission. She denies any fevers but states she woke up with some sweating and chills this morning. She is asking for increased frequency of IV Dilaudid, encouraged oral Dilaudid use of tolerating oral meds. Objective Vitals Vital Signs Date Time Temp Pulse Resp B/P (MAP) Pulse Ox O2 Delivery O2 Flow Rate FiO2 02/04/17 07:57 96.0 66 20 132/92 (105) 98 02/04/17 03:48 98.7 80 18 106/63 (77) 97 02/04/17 01:07 16 02/04/17 00:32 98.7 101 17 118/81 (93) 93 02/03/17 19:48 98.2 74 19 116/77 (90) 97 02/03/17 16:00 98.3 81 18 120/80 (93) 99 02/03/17 11:27 97.9 87 18 115/80 (92) 100 I/O 02/03/17 02/03/17 02/03/17 02/04/17 02/04/17 02/04/17 07:00 15:00 23:00 07:00 15:00 23:00 Intake Total 1000 ml 1000 ml Balance 1000 ml 1000 ml Intake IV Total 1000 ml 1000 ml Result Diagram: 02/04/17 0750 02/04/17 0750 Imaging Last Impressions Abdomen X-Ray 02/03/17 0000 Signed Impressions: Service Date/Time: Friday, February 03, 2017 20:51 - CONCLUSION: No acute disease. Laurent Kunz MD Objective Remarks GENERAL: Well-developed well-nourished. In no acute distress. SKIN: Warm and dry. No lesions noted. HEENT: Normocephalic. Pupils equal and round. Mucous membranes pink and moist. CARDIOVASCULAR: Regular rate and rhythm. No murmur appreciated. RESPIRATORY: No accessory muscle use. Clear to auscultation. Breath sounds equal bilaterally. GASTROINTESTINAL: Abdomen soft, non-tender, nondistended. Bowel sounds x4. MUSCULOSKELETAL: No obvious deformities. No clubbing or cyanosis. No edema. NEUROLOGICAL: Awake and alert. No focal neurological deficits. Moves upper and lower extremities spontaneously. Normal speech. PSYCHIATRIC: Appropriate mood and affect; insight and judgment normal. A/P Assessment and Plan 31-year-old female with past medical history of Crohn's disease, anxiety/ depression, and chronic abdominal pain who presented for worsening abdominal pain Abdominal pain, nausea, vomiting, diarrhea: Possible Crohn's flare. Review: Abdominal pelvis CT from 02/01 from other facility was unremarkable. Abdominal x-ray here with no acute process. 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 -IV steroids -Pain control as below -Continue home mesalamine -IVF -Zofran as needed Chronic pain: Confirmed patient's home dose of Dilaudid 2 mg every 6 hours as needed. -Continue home Dilaudid oral and will provide IV Dilaudid as needed if not tolerating oral intake as above -Counseled regarding narcotics -Continue outpatient pain management follow-up Anxiety/depression: Chronic. -Continue Zoloft and Xanax as needed DVT prophylaxis: SCDs Discharge Planning Discussed with case management, meets inpatient criteria. Follow up GI recommendations. Junior Wharton Feb 04, 2017 10:41
[2017-02-04 11:41] VITALS: BP 119/84; PULSE 77; RESP 16; TEMP 96.2; O2SAT 97
[2017-02-04] MEDS: NS + KCL 20 MEQ INJ 1,000 ML IV SCH (11:55)
--- NOTE | 2017-02-04 15:05 | HHI.GIFU ---
Subjective Remarks States her pain is about the same. She is having nausea, but no vomiting. She has not had a bowel movement today. Objective Vitals I&O Vital Signs Date Time Temp Pulse Resp B/P (MAP) Pulse Ox O2 Delivery O2 Flow Rate FiO2 02/04/17 11:41 96.2 77 16 119/84 (96) 97 02/04/17 07:57 96.0 66 20 132/92 (105) 98 02/04/17 03:48 98.7 80 18 106/63 (77) 97 02/04/17 01:07 16 02/04/17 00:32 98.7 101 17 118/81 (93) 93 02/03/17 19:48 98.2 74 19 116/77 (90) 97 02/03/17 16:00 98.3 81 18 120/80 (93) 99 I/O 02/03/17 02/03/17 02/03/17 02/04/17 02/04/17 02/04/17 07:00 15:00 23:00 07:00 15:00 23:00 Intake Total 1000 ml 1000 ml Balance 1000 ml 1000 ml Intake IV Total 1000 ml 1000 ml Laboratory Laboratory Tests Test 02/04/17 07:50 White Blood Count 6.0 Red Blood Count 4.21 Hemoglobin 10.8 Hematocrit 33.3 Mean Corpuscular Volume 79.1 Mean Corpuscular Hemoglobin 25.6 Mean Corpuscular Hemoglobin Concent 32.4 Red Cell Distribution Width 14.2 Platelet Count 199 Mean Platelet Volume 10.3 Neutrophils (%) (Auto) 75.7 Lymphocytes (%) (Auto) 20.8 Monocytes (%) (Auto) 3.3 Eosinophils (%) (Auto) 0.1 Basophils (%) (Auto) 0.1 Neutrophils # (Auto) 4.5 Lymphocytes # (Auto) 1.2 Monocytes # (Auto) 0.2 Eosinophils # (Auto) 0.0 Basophils # (Auto) 0.0 CBC Comment DIFF FINAL Differential Comment Blood Urea Nitrogen 9 Creatinine 0.60 Random Glucose 92 Calcium Level 8.8 Magnesium Level 2.2 Sodium Level 137 Potassium Level 3.4 Chloride Level 104 Carbon Dioxide Level 23.5 Anion Gap 10 Estimat Glomerular Filtration Rate 118 Imaging Last Impressions Abdomen X-Ray 02/03/17 0000 Signed Impressions: Service Date/Time: Friday, February 03, 2017 20:51 - CONCLUSION: No acute disease. Laurent Kunz MD Physical Exam HEENT: Normocephalic; atraumatic; no jaundice. CHEST: CTA CARDIAC: RRR ABDOMEN: Soft, nondistended, nontender; no hepatosplenomegaly; bowel sounds are present in all four quadrants. EXTREMITIES: No clubbing, cyanosis, or edema. SKIN: Normal; no rash; no jaundice. DENTAL OFFICE COORDINATOR: No focal deficits; alert and oriented times three. Assessment and Plan Plan ASSESSMENT: - Abdominal pain with N/V/D. Pt reports that she has Crohn's disease. She is followed by Dr. Frank in [place]. She recently relocated to this area and has had several visits to [facility] for abdominal pain and diarrhea. Reviewed records from [facility]. She was seen on 01/14/17 and was discharged home. She returned on 01/15 and was admitted overnight and evaluated by Dr. Ronda Davis for abdominal pain, possibly related to Crohns exacerbation and she was given a steroid taper. She was then seen in the ER on 01/31 and discharged home with Lortab. She was also seen in the ER on 02/01. At that time, she was evaluated with CT scan abdomen and pelvis with IV contrast (02/01/17)- --> unremarkable CT scan of the abdomen and pelvis. She was discharged home and instructed to follow up with her GI physician. She saw Dr. Frank on Thursday, at which time he took her off the steroid taper and recommended colonoscopy. She has not scheduled this yet. Reports 5 day hx of n/v, RLQ pain, and severe diarrhea with 20 bm's per day, occasional brbpr when she wipes. Solumedrol 40mg IV q8h. Stool studies ordered, but has not had any further diarrhea. Records from Dr. Frank reviewed. Will get CT enterography, sed rate, crp. - Reported hx of Crohn's. States dx 8 years ago. She is on Humira (took a week ago Thursday), pentasa 250mg iiii po QID, zofran prn, phenergan prn, dilaudid 2mg po QID. 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 Followed by Dr. Frank in [place]. Reviewed records from Dr. Frank (on chart). 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 Avina for her Crohns. Of note, he mentions that he has had issues with her wanting a lot of narcotics and that the pharmacy called to report this to him as well. - Chronic back and abdominal pain. States she takes Dilaudid 2mg po QID. She goes to pain management for this and Padmini's infusions for fibromyalgia. She goes to pain management for her dilaudid/Ramírez infusions for abdominal and back pain. - Anemia, mild. Stable. - Hypokalemia, Fibromyalgia. Per attending. PLAN: - Clear liquids - CT enterography to evaluate small bowel - Sed rate, CRP - Cont. Solumedrol for now - Stool studies - Monitor labs - Monitor stool output - Supportive care - O[place], Dr. Angel Matute for recent surgery - Further recommendations to follow after results of above - Pt seen and examined by Dr. Sagastume and myself and this note is written on her behalf Alma Marino Feb 04, 2017 15:05
[2017-02-04] MEDS: HYDROmorphone HCL 2 MG TAB PO PRN (15:32)
[2017-02-04] MEDS: ALPRAZolam 0.5 MG TAB PO PRN (16:55)
[2017-02-04 17:03] VITALS: BP 134/87; PULSE 69; RESP 15; TEMP 95.9; O2SAT 100
[2017-02-04] MEDS: diphenhydrAMINE HCL 25 MG CAP PO PRN (19:58)
[2017-02-05] VITALS: BP 137/91; PULSE 99; RESP 18; TEMP 98.7; O2SAT 100
[2017-02-05] MEDS: methylPREDNISolone SOD SUCC 40 MG/1 ML VIAL IV PUSH SCH ×4 (00:27→21:25)
[2017-02-05] MEDS: NS + KCL 20 MEQ INJ 1,000 ML IV SCH ×3 (00:27→15:53)
[2017-02-05] MEDS: ALPRAZolam 0.5 MG TAB PO PRN ×3 (03:07→21:25)
[2017-02-05] MEDS: metroNIDAZOLE 500 MG INJ 100 ML IV SCH ×4 (03:08→21:26)
[2017-02-05 04:00] VITALS: BP 148/88; PULSE 70; RESP 18; TEMP 98.5; O2SAT 100
[2017-02-05] MEDS: HYDROmorphone HCL PF 1 MG/ML VIAL IV PUSH PRN ×4 (04:31→21:25)
[2017-02-05 07:33] VITALS: BP 132/84; PULSE 62; RESP 18; TEMP 97.6; O2SAT 100
[2017-02-05] MEDS ORDERED: POTASSIUM CHLORIDE 20 MEQ CONTROLLED RELEASE TAB PO ONE (08:30)
[2017-02-05] MEDS: SODIUM CHLORIDE 0.9% FLUSH 10 ML FLUSH IV FLUSH SCH ×2 (09:00→21:26)
--- NOTE | 2017-02-05 09:17 | HHI.GIFU ---
Subjective Remarks Resting in bed in no distress. Does not appear uncomfortable, but states her pain is horrible and is requesting to have her Dilaudid to be increased to every 4 hours instead of every 6 hours. States her pain is unbearable and no one seems to be addressing her pain medications. States she tried the oral pain pills, but this did not help and she had to go back to IV yesterday. She has nausea without vomiting. Ongoing RLQ pain. She has not had a bowel movement. She is not distended. She is tolerating the contrast for CT enterography. (Alma Marino) Objective Vitals I&O Vital Signs Date Time Temp Pulse Resp B/P (MAP) Pulse Ox O2 Delivery O2 Flow Rate FiO2 02/05/17 07:33 97.6 62 18 132/84 (100) 100 02/05/17 05:02 12 02/05/17 04:00 98.5 70 18 148/88 (108) 100 02/05/17 00:00 98.7 99 18 137/91 (106) 100 02/04/17 17:03 95.9 69 15 134/87 (103) 100 02/04/17 11:41 96.2 77 16 119/84 (96) 97 I/O 02/04/17 02/04/17 02/04/17 02/05/17 02/05/17 02/05/17 07:00 15:00 23:00 07:00 15:00 23:00 Intake Total 200 ml 200 ml Output Total 600 ml Balance 200 ml -400 ml Intake Oral 200 ml 200 ml Output Urine Total 600 ml # Bowel Movements 0 Laboratory Laboratory Tests Test 02/05/17 06:03 Imaging Last Impressions Abdomen X-Ray 02/03/17 0000 Signed Impressions: Service Date/Time: Friday, February 03, 2017 20:51 - CONCLUSION: No acute disease. Laurent Kunz MD Physical Exam HEENT: Normocephalic; atraumatic; no jaundice. CHEST: CTA CARDIAC: RRR ABDOMEN: Soft, nondistended, RLQ tenderness; no hepatosplenomegaly; bowel sounds are present in all four quadrants. EXTREMITIES: No clubbing, cyanosis, or edema. SKIN: Normal; no rash; no jaundice. FIREWORKS DISPLAY SPECIALIST: No focal deficits; alert and oriented times three. (Alma Marinoissa REGIONAL TELECOMMUNICATIONS SPECIALIST) Assessment and Plan Plan ASSESSMENT: - Abdominal pain with N/V/D. Pt reports that she has Crohn's disease. She is followed by Dr. Frank in [place]. She recently relocated to this area and has had several visits to [facility] for abdominal pain and diarrhea. Reviewed records from [facility]. She was seen on 01/14/17 and was discharged home. She returned on 01/15 and was admitted overnight and evaluated by Dr. Ronda Davis for abdominal pain, possibly related to Crohns exacerbation and she was given a steroid taper. She was then seen in the ER on 01/31 and discharged home with Lortab. She was also seen in the ER on 02/01. At that time, she was evaluated with CT scan abdomen and pelvis with IV contrast (02/01/17)- --> unremarkable CT scan of the abdomen and pelvis. She was discharged home and instructed to follow up with her GI physician. She saw Dr. Frank on Thursday, at which time he took her off the steroid taper and recommended colonoscopy. She has not scheduled this yet. Reports 5 day hx of n/v, RLQ pain, and severe diarrhea with 20 bm's per day, occasional brbpr when she wipes. Solumedrol 40mg IV q8h. Stool studies ordered, but has not had any further diarrhea. Records from Dr. Frank reviewed. Sed rate pending. CRP < 0.28. CT enterography pending. Clinically, she does not appear to be in any distress, but states her pain is "horrible" and not being controlled and is requesting her pain meds to be increased. Await CT enterography. - Reported hx of Crohn's. States dx 8 years ago. She is on Humira (took a week ago Thursday), pentasa 250mg iiii po QID, zofran prn, phenergan prn, dilaudid 2mg po QID. 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 Followed by Dr. Frank in [place]. Reviewed records from Dr. Frank (on chart). 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 Avina for her Crohns. Of note, he mentions that he has had issues with her wanting a lot of narcotics and that the pharmacy called to report this to him as well. - Chronic back and abdominal pain. States she takes Dilaudid 2mg po QID. She goes to pain management for this and Padmini's infusions for fibromyalgia. She goes to pain management for her dilaudid/Ramírez infusions for abdominal and back pain. - Anemia, mild. Stable. - Hypokalemia, Fibromyalgia. Per attending. PLAN: - Clear liquids - Await CT enterography to evaluate small bowel - Await Sed rate - Cont. Solumedrol for now - Stool studies - Monitor labs - Supportive care - Further recommendations to follow after results of above - Pt seen and examined by Dr. Sagastume and myself and this note is written on her behalf (Alma Marino) Physician Comments seen, examined agree with above ct enterography negative egd/colonoscopy was discussed with her-would like to do it op full liquid diet ok to dc in am from gi point [facility] 1-2 weeks (Maricruz Sagastume MD) Alma Marino Feb 05, 2017 09:17 Maricruz Sagastume MD Feb 05, 2017 20:07
[2017-02-05] MEDS ORDERED: IOHEXOL 350 MG/ML 10 ML VIAL (for RAD DIAG) IVCONTRAST ONE (09:44)
[2017-02-05] MEDS: MESALAMINE 250 MG CAP PO SCH ×4 (09:48→21:26)
[2017-02-05] MEDS: SERTRALINE HCL 100 MG TAB PO SCH (09:48)
[2017-02-05] MEDS: ONDANSETRON HCL 4 MG/2 ML VIAL IVP PRN ×2 (09:55→15:54)
--- NOTE | 2017-02-05 10:21 | RADRPT ---
EXAM DATE/TIME: 02/05/2017 09:22 [place] COMPARISON: ABDOMEN FLAT & UPRIGHT, February 03, 2017, 20:51. INDICATIONS : Intractable vomiting, history of stricture; evaluate for small bowel obstruction. Crohn's disease wit h history of colonic resection. IV CONTRAST: 100 cc Omnipaque 350 (iohexol) IV ORAL CONTRAST: Prescribed oral contrast ingested. RADIATION DOSE: 9.96 CTDIvol (mGy) MEDICAL HISTORY : Crohn's disease. SURGICAL HISTORY : Colon resection. section. ENCOUNTER: Initial ACUITY: 1 week PAIN SCALE: 0/10 LOCATION: lower quadrant TECHNIQUE: Prior to image acquisition, an oral contrast regimen consisting of neutral oral contrast material was consumed by the patient. Small bowel paralysis was achieved with slow intravenous administration of 1mg glucagon. Helical scanning of the entire abdomen and pelvis was then performed using a multi-dete ctor CT scanner. Coronal thin-section reconstruction was also performed. Using automated exposure con trol and adjustment of the mA and/or kV according to patient size, radiation dose was kept as low as reasonably achievable to obtain optimal diagnostic quality images. DICOM format image data is avail able electronically for review and comparison. FINDINGS: GASTROINTESTINAL FINDINGS: ADEQUACY OF DISTENSION: There is adequate distention of the small bowel with neutral oral contrast material. STOMACH: No abnormalities seen. There is normal wall thickness and rugal fold pattern. DUODENUM: No abnormalities seen. No diverticula or masses identified. JEJUNUM/ILEUM: The small bowel wall thickness is normal and there is a normal fold pattern of both the jejunum and i leum. No strictures are identified. There is normal mucosal enhancement. No findings to suggest small bowel obstruction. The terminal ileum has a normal appearance. COLON: No abnormalities seen, however, this exam is not optimized for evaluation of the colon. OTHER FINDINGS: The visualized heart and lung bases are unremarkable. The adrenals, kidneys, and pancreas have a nor mal appearance. There is a small 5 mm benign cystic structure in upper spleen. There is a small left ovarian cyst measuring 1.8 x 1.7 cm. Retroperitoneum demonstrates a non-aneurysmal aorta without lym phadenopathy. The bladder and pelvic structures are grossly intact. The visualized bones demonstrat e no significant abnormality. There are Low-attenuation areas in the liver which are benign. CONCLUSION: 1. Status post partial right colectomy with resection of the cecum and anastomosis in the ascending c olon. 2. The small bowel appears unremarkable with no dilatation, focal lesion or stricture. 3. Small left ovarian cyst. 4. Small benign cystic lesion in the spleen. Teo Cardenas MD on February 05, 2017 at 10:10 Board Certified Radiologist. This report was verified electronically.
[2017-02-05 11:28] VITALS: BP 126/86; PULSE 66; RESP 18; TEMP 98.1; O2SAT 99
[2017-02-05 14:25] LABS: C. DIFF EPI 027 PRESUMPTIVE NEGATIVE (NEGATIVE)
[2017-02-05 17:00] VITALS: BP 108/69; PULSE 77; RESP 18; TEMP 98.8; O2SAT 97
--- NOTE | 2017-02-05 17:36 | HHI.PR ---
Subjective Remarks Follow up for abdominal pain, Crohn's exacerbation. The patient is seen this afternoon playing with her 8month old baby in bed and ambulating her room. She states her pain is much better after receiving IV dilaudid. Denies any nausea/ vomiting. She is tolerating clear liquids. She had a BM this afternoon. We discussed her CT results, no acute findings. She again asks that we give her IV dilaudid instead of oral; she states she doesn't think she's ready for oral medication yet. She is hoping that by tomorrow she will feel well enough to go home. Objective Vitals Vital Signs Date Time Temp Pulse Resp B/P (MAP) Pulse Ox O2 Delivery O2 Flow Rate FiO2 02/05/17 16:26 18 02/05/17 11:28 98.1 66 18 126/86 (99) 99 02/05/17 07:33 97.6 62 18 132/84 (100) 100 02/05/17 04:00 98.5 70 18 148/88 (108) 100 02/05/17 00:00 98.7 99 18 137/91 (106) 100 I/O 02/04/17 02/04/17 02/04/17 02/05/17 02/05/17 02/05/17 07:00 15:00 23:00 07:00 15:00 23:00 Intake Total 200 ml 200 ml Output Total 600 ml Balance 200 ml -400 ml Intake Oral 200 ml 200 ml Output Urine Total 600 ml # Bowel Movements 0 Result Diagram: 02/04/17 0750 02/04/17 0750 Imaging Last Impressions Abdomen/Pelvis CT 02/05/17 0000 Signed Impressions: Service Date/Time: February 09:22 - CONCLUSION: 1. Status post partial right colectomy with resection of the cecum and anastomosis in the ascending colon. 2. The small bowel appears unremarkable with no dilatation, focal lesion or stricture. 3. Small left ovarian cyst. 4. Small benign cystic lesion in the spleen. Teo Cardenas MD Abdomen X-Ray 02/03/17 0000 Signed Impressions: Service Date/Time: Friday, February 03, 2017 20:51 - CONCLUSION: No acute disease. Laurent Kunz MD Objective Remarks GENERAL: Well-nourished, well-developed young female patient in [place]. Ambulating her room, playing with baby. SKIN: Warm and dry. No rash. HEENT: Normocephalic. Atraumatic.Pupils equal and round. Mucous membranes pink and moist. NECK: Supple. Trachea midline. CARDIOVASCULAR: Regular rate and rhythm. S1, S2 noted. No murmur appreciated. RESPIRATORY: No accessory muscle use. Clear to auscultation. Breath sounds equal bilaterally. GASTROINTESTINAL: Abdomen soft, non-tender, nondistended. Normoactive bowel sounds x4. MUSCULOSKELETAL: No obvious deformities. Extremities without clubbing, cyanosis , or edema. NEUROLOGICAL: Awake and alert. No obvious cranial nerve deficits. Motor grossly within normal limits. Normal speech. PSYCHIATRIC: Appropriate mood and affect; insight and judgment normal. Medications and IVs Current Medications Medications (Trade) Dose Ordered Sig/Ayan Route Start Time Stop Time Status Last Admin (NS Flush) 2 ml UNSCH PRN IV FLUSH 02/03/17 02:15 02/04/17 05:38 (NS Flush) 2 ml BID IV FLUSH 02/03/17 09:00 02/04/17 08:34 (Zofran Inj) 4 mg Q6H PRN IVP 02/03/17 02:15 02/05/17 15:54 (Narcan Inj) 0.4 mg UNSCH PRN IV PUSH 02/03/17 02:15 (Pentasa Sr) 1,000 mg QID PO 02/03/17 09:00 02/05/17 13:14 (Zoloft) 100 mg DAILY PO 02/03/17 09:00 02/05/17 09:48 (Xanax) 0.5 mg TID PRN PO 02/03/17 07:45 02/05/17 13:18 (Dilaudid) 2 mg Q6H PRN PO 02/03/17 07:45 02/04/17 15:32 (Dilaudid Pf Inj) 1 mg Q6H PRN IV PUSH 02/03/17 10:30 02/05/17 15:56 (Benadryl) 25 mg Q6H PRN PO 02/03/17 10:30 02/04/17 19:58 (SoluMEDROL INJ) 40 mg Q8HR IV PUSH 02/03/17 14:00 02/05/17 13:14 Metronidazole 100 ml @ 100 mls/hr Q6H IV 02/03/17 20:00 02/05/17 15:45 Potassium Chloride/Sodium Chloride 1,000 ml @ 100 mls/hr Q10H IV 02/04/17 10:00 02/05/17 15:53 A/P Assessment and Plan 31-year-old female with past medical history of Crohn's disease, anxiety/ depression, and chronic abdominal pain who presented for worsening abdominal pain Intractable Abdominal pain/Nausea/Vomiting/Diarrhea: Suspected Crohn's flare. -Obtain records from patient's culinary manager Dr. Frank in [place] -Consult gastroenterology, appreciate recommendations -Continue steroids with IV Solumedrol -Supportive treatment with IVF, antiemetics prn, Pain control with oral Dilaudid prn and IV dilaudid prn -Continue home mesalamine -Clear liquid diet for now, patient tolerating Chronic pain: Confirmed patient's home dose of Dilaudid 2 mg every 6 hours as needed. -Continue home Dilaudid oral and will provide IV Dilaudid as needed if not tolerating oral intake as above Anxiety/depression: Chronic. -Continue Zoloft and Xanax as needed DVT prophylaxis: SCDs Discharge Planning Hopefully discharge tomorrow if symptoms continue to improve. Mónica Montes PA-C Feb 05, 2017 5:36 pm
[2017-02-05 19:50] VITALS: BP 99/60; PULSE 79; RESP 18; TEMP 97.9; O2SAT 98
[2017-02-05] MEDS: diphenhydrAMINE HCL 25 MG CAP PO PRN (21:25)
[2017-02-06] MEDS: ONDANSETRON HCL 4 MG/2 ML VIAL IVP PRN (03:32)
[2017-02-06] MEDS: metroNIDAZOLE 500 MG INJ 100 ML IV SCH ×2 (03:33→08:35)
[2017-02-06] MEDS: NS + KCL 20 MEQ INJ 1,000 ML IV SCH (03:33)
[2017-02-06] MEDS: HYDROmorphone HCL PF 1 MG/ML VIAL IV PUSH PRN (03:33)
[2017-02-06 04:18] VITALS: BP 112/70; PULSE 72; RESP 18; TEMP 98; O2SAT 98
[2017-02-06] MEDS: methylPREDNISolone SOD SUCC 40 MG/1 ML VIAL IV PUSH SCH (05:14)
[2017-02-06] MEDS ORDERED: PRED10PA2 PO (07:39)
--- NOTE | 2017-02-06 07:40 | HHI.DCPOC ---
Discharge Care Plan Diagnosis: (1) Exacerbation of Crohn's disease (2) Abdominal pain (3) Nausea & vomiting Goals to Promote Your Health * To prevent worsening of your condition and complications * To maintain your health at the optimal level Directions to Meet Your Goals Take your medications as prescribed Follow your dietary instruction Follow activity as directed Keep your appointments as scheduled Take your immunizations and boosters as scheduled If your symptoms worsen call your PCP, if no PCP go to Urgent Care Center or Emergency Room Smoking is Dangerous to Your Health. Avoid second hand smoke Call the 24-hour hour crisis hotline for domestic abuse at Mónica Montes PA-C Feb 06, 2017 7:40 am
[2017-02-06] MEDS: ALPRAZolam 0.5 MG TAB PO PRN (08:34)
[2017-02-06 08:35] VITALS: BP 111/70; PULSE 80; RESP 20; TEMP 97.8; O2SAT 96
[2017-02-06] MEDS: SERTRALINE HCL 100 MG TAB PO SCH (08:35)
[2017-02-06] MEDS: MESALAMINE 250 MG CAP PO SCH (08:35)
[2017-02-06] MEDS: SODIUM CHLORIDE 0.9% FLUSH 10 ML FLUSH IV FLUSH SCH (08:35)
[2017-02-06] MEDS: HYDROmorphone HCL 2 MG TAB PO PRN (09:02)
--- NOTE | 2017-02-06 09:57 | HHI.DS ---
cc: Maricruz Sagastume MD Discharge Summary Admission Date Feb 04, 2017 at 9:00 am Discharge Date: Feb 06, 2017 Admitting Diagnosis intractable vomiting (1) Exacerbation of Crohn's disease ICD Code: K50.90 - Crohn's disease, unspecified, without complications Diagnosis: Principal (2) Abdominal pain ICD Code: R10.9 - Unspecified abdominal pain Diagnosis: Secondary Status: Acute (3) Nausea & vomiting ICD Code: R11.2 - Nausea with vomiting, unspecified Diagnosis: Secondary Status: Acute Procedures None. Brief History - From Admission 31-year-old female with past medical history of Crohn's disease, anxiety, and chronic abdominal pain who presented for worsening abdominal pain. The patient states that for the past 5 days since she has been having abdominal pain. She describes the pain as mid abdomen radiating to her back, constant, sharp. She actually finished a prednisone taper the day before; was told to stop by her research soil scientist Dr. Frank. She's been to the ED multiple times with this and has had an unremarkable abdominal CT scans and discharged home. She states that on she had a fever of 102 and it was 101 on Thursday, although it has improved since then. She states she's been having associated nausea and vomiting, nonbloody for the last 5 days. For the past 5 days she's been having associated diarrhea about 20 times a day, reports occasionally bloody due to hemorrhoidal irritation. She isn't having associated headache for last 5 days described as a pressure. She states she's felt more weak and had a fall, denies any loss of consciousness. She denies any dysuria. She reports she has not been able to keep any of her oral medications down for Crohn's disease or pain. CBC/BMP: 02/04/17 0750 02/04/17 0750 Significant Findings Laboratory Tests Test 02/04/17 07:50 02/04/17 08:50 02/05/17 06:03 02/05/17 12:45 Hemoglobin 10.8 GM/DL (11.6-15.3) Hematocrit 33.3 % (35.0-46.0) Mean Corpuscular Volume 79.1 FL (80.0-100.0) Mean Corpuscular Hemoglobin 25.6 PG (27.0-34.0) Neutrophils (%) (Auto) 75.7 % (16.0-70.0) Potassium Level 3.4 MEQ/L (3.5-5.1) Imaging Last Impressions Abdomen/Pelvis CT 02/05/17 0000 Signed Impressions: Service Date/Time: February 09:22 - CONCLUSION: 1. Status post partial right colectomy with resection of the cecum and anastomosis in the ascending colon. 2. The small bowel appears unremarkable with no dilatation, focal lesion or stricture. 3. Small left ovarian cyst. 4. Small benign cystic lesion in the spleen. Teo Cardenas MD Abdomen X-Ray 02/03/17 0000 Signed Impressions: Service Date/Time: Friday, February 03, 2017 20:51 - CONCLUSION: No acute disease. Laurent Kunz MD PE at Discharge GENERAL: Well-nourished, well-developed young female patient in [facility]. SKIN: Warm and dry. HEENT: Normocephalic. Atraumatic.Pupils equal and round. Mucous membranes pink and moist. CARDIOVASCULAR: Regular rate and rhythm. S1, S2 noted. No murmur appreciated. RESPIRATORY: No accessory muscle use. Clear to auscultation. Breath sounds equal bilaterally. GASTROINTESTINAL: Abdomen soft, non-tender, nondistended. Normoactive bowel sounds x4. MUSCULOSKELETAL: No obvious deformities. Extremities without clubbing, cyanosis , or edema. NEUROLOGICAL: Awake and alert. No obvious cranial nerve deficits. Motor grossly within normal limits. Normal speech. PSYCHIATRIC: Appropriate mood and affect; insight and judgment normal. Pt update on day of discharge The patient reports feeling better again today. Abdominal pain much improved. She's tolerating oral intake. Denies fevers/chills. Denies any nausea/vomiting. She feels ready for discharge. Hospital Course 31-year-old female with past medical history of Crohn's disease, anxiety/ depression, and chronic abdominal pain who presented for worsening abdominal pain The patient was admitted with suspect Crohn's Flare. GI was consulted. She was started on treatment with steroids, IV Solumedrol. Supportive treatment with IVF , antiemetics, and pain control with po and IV dilaudid. Her home mesalamine was continued. CT enterography was done as patient continued to have pain however this shows s/p partial right colectomy with resection of the cecum and anastomosis in the ascending colon; small bowel unremarkable with no dilatation , focal lesion or stricture. Patient's pain eventually subsided. Clear liquid diet was advanced, patient tolerating well. Pain improved. She was cleared for discharge by GI, plan for outpatient follow up for EGD/colonoscopy. She plans to continue seeing Dr. Sagastume as outpatient instead of her previous gastroenterology Dr. Frank in [place]. Pt Condition on Discharge: Stable Discharge Disposition: Discharge Home Discharge Time: > 30 minutes Discharge Instructions DIET: Follow Instructions for: Soft Diet, Full Liquid Diet Additional Diet Instructions: Continue with soft foods and liquids over the next few days, advance to regular food as tolerated. Activities you can perform: Regular-No Restrictions Follow up Referrals: Gastroenterology - 1 Week with Maricruz Sagastume MD PCP Follow-up - 1 Week New Medications: Prednisone (48) 10 mg tab Dose Pack (Prednisone (48) 10 mg tab Dose Pack) 10 Mg Dspk 10 MG PO DIRECTED for Inflammation, #1 DSPK 0 Refills Continued Medications: Adalimumab 2-Pack Inj (Humira 2-Pack Inj) 40 Mg/0.8 Ml Syr 40 MG SQ Q14D, #1 KIT 0 Refills Alprazolam (Xanax) 0.5 Mg Tab 0.5 MG PO TID PRN for ANXIETY, TAB 0 Refills Hydromorphone (Hydromorphone) 2 Mg Tab 2 MG PO Q6H PRN for PAIN, TAB 0 Refills Mesalamine ER (Pentasa) 250 Mg Caper 1000 MG PO QID for Ulcerative Colitis, CAP 0 Refills Ondansetron Odt (Zofran Odt) 4 Mg Tab 4 MG SL ONCE for Nausea/Vomiting, #1 TAB 0 Refills Promethazine Supp (Phenergan Supp) 25 Mg Supp 25 MG RECTAL Q8HR PRN for NAUSEA OR VOMITING, #7 SUPP 0 Refills Sertraline (Zoloft) 100 Mg Tab 100 MG PO DAILY, #30 TAB 0 Refills Mónica Montes PA-C Feb 06, 2017 9:57 am
== END 2017-02-06 10:10 | disposition home or self-care (01) | DRG 387 ==
LOC: NEPD 20:34 → NEDA 02-03 01:50 → NEPGCP 02-03 03:01 → OBSVTOIN 02-04 09:00
PROVIDERS: ADMIT Internal Medicine; ATTEND Internal Medicine
DX: K50.90 Crohn's disease, unspecified, without complications (principal); F32.9 Major depressive disorder, single episode, unspecified; R11.2 Nausea with vomiting, unspecified; F41.9 Anxiety disorder, unspecified; G89.29 Other chronic pain; M79.7 Fibromyalgia; D64.9 Anemia, unspecified; E87.6 Hypokalemia; M54.9 Dorsalgia, unspecified
CPT/HCPCS: 74020; 74177; 76937; 80048; 80053; 80307; 81001; 83605; 83735; 84703; 85025; 85652; 86140; 87205; 87329; 87493; 87506; 96361; 96365; 96366; 96375; 96376; G0378; J0780; J1170; J1885; J2270; J2405; J2920; J3480; J7030; Q9967

== ENCOUNTER 2017-03-16 14:04 | Emergency (ER) | payer OTHER ==
[~2017-03-16 14:04] MED LIST changes: +ALPR.5 PO; +PRED10PA2 PO; -PRED5TAB PO; -PROM25TA10 PO; +ZOLO100T PO
[2017-03-16 14:08] VITALS: BP 121/82; PULSE 99; RESP 15; TEMP 98; O2SAT 99
[2017-03-16] MEDS ORDERED: STEROIDS PO (14:31)
[2017-03-16] MEDS ORDERED: SODIUM CHLOR 0.9% 1000 ML INJ 1,000 ML IV SCH (14:31)
[2017-03-16 14:41] VITALS: O2SAT 98
[2017-03-16] MEDS ORDERED: ONDANSETRON HCL 4 MG/2 ML VIAL IVP ONE (14:45)
[2017-03-16] MEDS ORDERED: diphenhydrAMINE HCL 50 MG/ML VIAL IV PUSH ONE (14:45)
[2017-03-16] MEDS ORDERED: SODIUM CHLORIDE 0.9% FLUSH 10 ML FLUSH IV FLUSH PRN (14:45)
[2017-03-16] MEDS ORDERED: HYDROmorphone HCL PF 1 MG/ML VIAL IVS ONE (14:45)
--- NOTE | 2017-03-16 14:55 | PD ---
HPI Chief Complaint: GI Complaint Time Seen by Provider: 14:18 Travel History International Travel<30 days: No Contact w/Intl Traveler<30days: No Traveled to known affect area: No History of Present Illness HPI 41-year-old female with abdominal pain, nausea vomiting. Patient has history of Crohn's disease with chronic recurrent abdominal pain. Patient was seen by hot car charger physician in [place] and recently moved to the area. Patient has been to the emergency room at [facility] and [facility]. Patient was admitted to [facility] and [facility] recently. Last admission to [facility] was a month ago. Patient was seen by hot car charger Dr. Sagastume locally. Patient had endoscopy done 2 weeks ago which shows no acute process. Patient states that she has increasing abdominal pain with nausea vomiting but past few days. Patient states the pain in cramping pain sharp pain most severe left low quadrant abdominal pain radiation. Patient states that she has low-grade fever at home. Patient denies any dysuria or frequency. Patient denies any vaginal discharge or bleeding. 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 PFSH Past Medical History Blood Disorders: No Anxiety: Yes Depression: Yes Cancer: No Cardiovascular Problems: No Chemotherapy: No Endocrine: No Fibromyalgia: Yes Gastrointestinal Disorders: Yes (CHRONES) Genitourinary: No Immune Disorder: No Musculoskeletal: No Neurologic: No Psychiatric: Yes Reproductive: No Respiratory: No Immunizations Current: Yes Radiation Therapy: No Tetanus Vaccination: < 5 Years Influenza Vaccination: Yes ?: Not : 1 Para: 1 Past Surgical History Abdominal Surgery: Yes (BOWEL RESECTION 08/18) Section: Yes Gynecologic Surgery: Yes () Other Surgery: Yes (BOWEL RESECTION IN 08/2016, 05/2016) Social History Alcohol Use: No Tobacco Use: No Substance Use: No Allergies-Medications (Allergen,Severity, Reaction): Coded Allergies: No Known Allergies (Unverified Adverse Reaction, Unknown, 03/16/17) Reported Meds & Prescriptions Reported Meds & Active Scripts Active Reported [Steroids] 3 Cap PO DAILY Xanax (Alprazolam) 0.5 Mg Tab 0.5 Mg PO TID PRN Zoloft (Sertraline HCl) 100 Mg Tab 100 Mg PO DAILY Pentasa (Mesalamine) 250 Mg Caper 1,000 Mg PO QID Humira 2-Pack Inj (Adalimumab 2-Pack Inj) 40 Mg/0.8 Ml Syr 40 Mg SQ Q14D Zofran Odt (Ondansetron Odt) 4 Mg Tab 4 Mg SL ONCE Hydromorphone (Hydromorphone HCl) 2 Mg Tab 2 Mg PO Q6H PRN Review of Systems General / Constitutional: No: Fever Eyes: No: Visual changes HENT: No: Headaches Cardiovascular: No: Chest Pain or Discomfort Respiratory: No: Shortness of Breath Gastrointestinal: Positive: Nausea, Vomiting, Abdominal Pain Genitourinary: No: Dysuria Musculoskeletal: No: Pain Skin: No Rash Neurologic: No: Weakness Psychiatric: No: Depression Endocrine: No: Polydipsia Hematologic/Lymphatic: No: Easy Bruising Physical Exam Narrative GENERAL: Well-nourished, well-developed patient. SKIN: Focused skin assessment warm/dry. HEAD: Normocephalic. EYES: No scleral icterus. No injection or drainage. NECK: Supple, trachea midline. No JVD or lymphadenopathy. CARDIOVASCULAR: Regular rate and rhythm without murmurs, gallops, or rubs. RESPIRATORY: Breath sounds equal bilaterally. No accessory muscle use. GASTROINTESTINAL: Abdomen soft, nondistended. Patient has moderate diffuse tenderness over the abdomen. No rebound tenderness. No mass. MUSCULOSKELETAL: No cyanosis, or edema. BACK: Nontender without obvious deformity. No CVA tenderness. Neurologic exam normal. Data Data Last Documented VS Vital Signs Date Time Temp Pulse Resp B/P (MAP) Pulse Ox O2 Delivery O2 Flow Rate FiO2 03/16/17 14:41 98 Room Air 03/16/17 14:08 98.0 99 15 121/82 (95) Orders Orders Ed Urine Pregnancytest Poc (03/16/17 14:31) Complete Blood Count With Diff (03/16/17 14:31) Comprehensive Metabolic Panel (03/16/17 14:31) Lipase (03/16/17 14:31) Urinalysis - C+S If Indicated (03/16/17 14:31) Iv Access Insert/Monitor (03/16/17 14:31) Ecg Monitoring (03/16/17 14:31) Oximetry (03/16/17 14:31) Ondansetron Inj (Zofran Inj) (03/16/17 14:45) Sodium Chlor 0.9% 1000 Ml Inj (Ns 1000 M (03/16/17 14:31) Sodium Chloride 0.9% Flush (Ns Flush) (03/16/17 14:45) Hydromorphone Pf Inj (Dilaudid Pf Inj) (03/16/17 14:45) Diphenhydramine Inj (Benadryl Inj) (03/16/17 14:45) Urine Culture (03/16/17 14:40) Labs Laboratory Tests Test 03/16/17 14:40 03/16/17 15:20 Urine Color YELLOW Urine Turbidity CLEAR Urine pH 6.0 Urine Specific Sadler 1.016 Urine Protein NEG mg/dL Urine Glucose (UA) NEG mg/dL Urine Ketones NEG mg/dL Urine Occult Blood TRACE Urine Nitrite NEG Urine Bilirubin NEG Urine Leukocyte Esterase MOD Urine RBC 0-3 /hpf Urine WBC 25-49 /hpf Urine Squamous Epithelial Cells > 8 /hpf Urine Bacteria FEW /hpf Urine Mucus FEW /lpf Microscopic Urinalysis Comment CULTURE INDICATED Blood Urea Nitrogen 5 MG/DL Creatinine 0.56 MG/DL Random Glucose 78 MG/DL Total Protein 7.5 GM/DL Albumin 4.0 GM/DL Calcium Level 8.8 MG/DL Alkaline Phosphatase 52 U/L Aspartate Amino Transf (AST/SGOT) 18 U/L Alanine Aminotransferase (ALT/SGPT) 21 U/L Total Bilirubin 0.3 MG/DL Sodium Level 140 MEQ/L Potassium Level 3.5 MEQ/L Chloride Level 110 MEQ/L Carbon Dioxide Level 19.0 MEQ/L Anion Gap 11 MEQ/L Estimat Glomerular Filtration Rate 128 ML/MIN Lipase 85 U/L White Blood Count 8.3 TH/MM3 Red Blood Count 4.43 MIL/MM3 Hemoglobin 11.1 GM/DL Hematocrit 34.6 % Mean Corpuscular Volume 78.1 FL Mean Corpuscular Hemoglobin 25.1 PG Mean Corpuscular Hemoglobin Concent 32.2 % Red Cell Distribution Width 14.4 % Platelet Count 221 TH/MM3 Mean Platelet Volume 10.6 FL Neutrophils (%) (Auto) 52.6 % Lymphocytes (%) (Auto) 38.1 % Monocytes (%) (Auto) 8.5 % Eosinophils (%) (Auto) 0.6 % Basophils (%) (Auto) 0.2 % Neutrophils # (Auto) 4.4 TH/MM3 Lymphocytes # (Auto) 3.2 TH/MM3 Monocytes # (Auto) 0.7 TH/MM3 Eosinophils # (Auto) 0.0 TH/MM3 Basophils # (Auto) 0.0 TH/MM3 CBC Comment DIFF FINAL Differential Comment [facility] Medical Decision Making Medical Screen Exam Complete: Yes Emergency Medical Condition: Yes Interpretation(s) 1535 PM. CBC WBC 8.3. Hemoglobin 11.1 hematocrit 34.6. MCV 78.1. Normal differential. CMP within normal limit. Bicarbonate 19. UA positive for WBC and bacteria. Differential Diagnosis Differential diagnosis including acute chronic abdominal pain, acute exacerbation of Crohn's disease. Narrative Course 31-year-old female with recurrent abdominal pain. History of Crohn's disease. Patient endoscopy done shows no acute process. Normal saline solution 1 L IV bolus. Dilaudid 1 mg IV. Zofran 4 mg IV. Benadryl 50 mg IV. Diagnosis Primary Impression: Abdominal pain Qualified Codes: R10.84 - Generalized abdominal pain Additional Impression: UTI (urinary tract infection) Qualified Codes: N30.00 - Acute cystitis without hematuria Patient Instructions: General Instructions Additional Instructions: Bactrim DS as directed. Follow-up with personal physician and GI specialist. Return if worse. Med/Other Pt SpecificInfo: Prescription(s) given Scripts Sulfamethoxazole-Trimethoprim (Bactrim DS) 800-160 Mg Tab 1 TAB PO BID for Infection, #14 TAB 0 Refills Prov: Ti Canales MD 03/16/17 Disposition: 01 DISCHARGE HOME Condition: Stable Ti Canales MD Mar 16, 2017 14:55
[2017-03-16 15:01] LABS: CHLORIDE 110 MEQ/L (98-107); SODIUM (NA) 140 MEQ/L (136-145)
[2017-03-16 15:05] LABS: ANION GAP 11 MEQ/L (5-15); BLOOD UREA NITROGEN 5 MG/DL (7-18)
[2017-03-16 15:08] LABS: ALT (GPT) 21 U/L (10-53); AST (GOT) 18 U/L (15-37); GLOMERULAR FILTRATION RATE 128 ML/MIN (>89)
[2017-03-16 15:09] LABS: BLOOD, URINE TRACE (NEG); GLUCOSE,URINE NEG (NEG); KETONE, URINE NEG (NEG); NITRITE,URINE NEG (NEG)
[2017-03-16 15:10] LABS: TOTAL BILIRUBIN ADULT 0.3 MG/DL (0.2-1.0)
[2017-03-16 15:11] LABS: ALKALINE PHOSPHATASE 52 U/L (45-117)
[2017-03-16 15:13] LABS: URINE COLOR YELLOW (YELLW/STRAW)
[2017-03-16 15:14] LABS: BACTERIA, URINE FEW /hpf; COMMENT (UR) CULTURE INDICATED; CULTURE IF INDICATED CULTURE INDICATED; MUCUS URINE FEW /lpf (OCC); RBC, URINE 0-3 /hpf (0-3); SQUAMOUS EPITHELIAL CELL URINE > 8 /hpf (0-5)
[2017-03-16 15:18] LABS: POTASSIUM 3.5 MEQ/L (3.5-5.1)
[2017-03-16 15:32] LABS: AUTOMATED NEUTROPHIL # 4.4 TH/MM3 (1.8-7.7); BASOPHIL % 0.2 % (0.0-2.0); EOSINOPHIL % 0.6 % (0.0-4.0); HEMATOCRIT 34.6 % (35.0-46.0); HEMO FLAGS DIFF FINAL; LYMPH % 38.1 % (9.0-44.0); LYMPHOCYTE # 3.2 TH/MM3 (1.0-4.8); MEAN CELL VOLUME 78.1 FL (80.0-100.0); MEAN CORPUSCULAR HEMOGLOBIN 25.1 PG (27.0-34.0); MEAN CORPUSCULAR HGB CONC 32.2 % (32.0-36.0); MONO % 8.5 % (0.0-8.0); NEUT % 52.6 % (16.0-70.0); PLATELET COUNT 221 TH/MM3 (150-450); RED BLOOD COUNT 4.43 MIL/MM3 (4.00-5.30); RED CELL DISTRIBUTION WIDTH 14.4 % (11.6-17.2); WHITE BLOOD COUNT 8.3 TH/MM3 (4.0-11.0)
[2017-03-16] MEDS ORDERED: BACT800T5 PO (15:40)
[2017-03-16 15:41] VITALS: BP 116/86; PULSE 83; RESP 16; O2SAT 98
== END 2017-03-16 16:00 | disposition home or self-care (01) ==
LOC: PHED 14:04
DX: N30.00 Acute cystitis without hematuria (principal); K50.90 Crohn's disease, unspecified, without complications
CPT/HCPCS: 80053; 81001; 83690; 84703; 85025; 87086; 96361; 96374; 96375; 99284; J1170; J1200; J2405; J7030